=== PATIENT | male | born 1960 | race Two or more races ===

== ENCOUNTER 2017-06-13 20:03 | Emergency (ER) | payer MEDICARE, MEDICAID ==
[~2017-06-13] VITALS: Ht 177.8 cm; Wt 72.6 kg
[2017-06-13 20:05] VITALS: BP 157/99
[2017-06-13 20:15] VITALS: BP 157/99
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
[2017-06-13] MEDS ORDERED: ACETAMINOPHEN-1 EAC1 ORAL (21:22)
[2017-06-13] MEDS ORDERED: LISINOPRIL5 MG ORAL (21:22)
== END 2017-06-13 20:45 | disposition home or self-care (01) ==
LOC: EDBD 20:03 → EMR 20:40
DX: Z43.3 Encounter for attention to colostomy (principal); I10 Essential (primary) hypertension; H53.40 Unspecified visual field defects; G47.00 Insomnia, unspecified
CPT/HCPCS: 96372; 99284; J1170

== ENCOUNTER 2018-03-25 00:09 | Emergency (ER) | payer MEDICARE, MEDICAID ==
[~2018-03-25] VITALS: Ht 188 cm; Wt 86.2 kg
[~2018-03-25 00:09] MED LIST: ACETAMINOPHEN-1 EAC1 ORAL; LISINOPRIL5 MG ORAL
[2018-03-25 00:11] VITALS: BP 176/128
[2018-03-25] MEDS ORDERED: metoprolol (00:15)
[2018-03-25] MEDS ORDERED: lisinopril (00:15)
[2018-03-25] MEDS ORDERED: NORVASC10 MG ORAL (00:53)
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
[2018-03-25 00:55] VITALS: BP 190/111
[2018-03-25 00:56] VITALS: BP 176/128
== END 2018-03-25 01:10 | disposition home or self-care (01) ==
LOC: EDBD 00:09 → EMR 00:44
DX: Z46.89 Encounter for fitting and adjustment of other specified devices (principal); I10 Essential (primary) hypertension
CPT/HCPCS: 99283

== ENCOUNTER 2019-04-25 12:43 | Emergency (ER) | payer MEDICARE, MEDICAID ==
[~2019-04-25] VITALS: Ht 188 cm; Wt 81.6 kg
[~2019-04-25 12:43] MED LIST changes: +NORVASC10 MG ORAL; +lisinopril; +metoprolol
[2019-04-25 12:45] VITALS: BP 164/99
--- NOTE | 2019-04-25 12:50 | NUR ---
ED Nurse Note: Patient brought in by ambulance, he was found asleep on the ground next to his wheelchair. Patient states he lowered himself to the ground and fell asleep, denies fall. Patient states he has not had a colostomy bag for 2 days. Patient AxO x 4, no s/s of acute distress.
--- NOTE | 2019-04-25 12:55 | NUR ---
ED Nurse Note: 2 new colostomy bags given to patient, washcloths and soapy water in basin provided, along with towels and blankets. Patient able to clean himself, denies assistance with cleaning.
--- NOTE | 2019-04-25 13:00 | NUR ---
ED Nurse Note: Dr. Staton at bedside
[2019-04-25 14:00] VITALS: BP 164/99
--- NOTE | 2019-04-25 14:00 | NUR ---
ED Nurse Note: Patient cleared for DC by Dr. Staton. Patient AxO x 4, no s/s of acute distress. ID band removed. Patient walks with steady gait, took all belongings.
--- NOTE | 2019-04-26 23:23 | Emergency Room Report ---
History of Present Illness General Chief Complaint: General Complaint Source: Patient Present Illness HPI 58-year-old male presents ED for evaluation. Brought in by EMS from [place]. Requesting colostomy bag supplies. Status post colostomy. Has not had a bag in a few days. Notes stool on his abdomen. Denies pain. Denies fevers or chills. No other aggravating relieving factors. Denies any other associated symptoms Allergies: Coded Allergies: No Known Allergies (Unverified , 06/13/17) Patient History Past Medical History: psych hx Past Surgical History: other - colostomy Pertinent Family History: none Social History: Denies: smoking, alcohol use, drug use Immunizations: UTD Reviewed Nursing Documentation: PMH: Agreed; PSxH: Agreed Nursing Documentation-PMH Past Medical History: No History, Except For Hx Cardiac Problems: Yes Hx Hypertension: Yes Hx Pacemaker: No Hx Asthma: No Hx COPD: No Hx Diabetes: No Hx Cancer: No Hx Gastrointestinal Problems: No Hx Dialysis: No History Of Psychiatric Problem: Yes Hx Neurological Problems: No Hx Cerebrovascular Accident: No Hx Seizures: No Review of Systems All Other Systems: negative except mentioned in HPI Physical Exam Vital Signs Date Time Temp Pulse Resp B/P (MAP) Pulse Ox O2 Delivery O2 Flow Rate FiO2 04/25/19 12:39 97.3 80 18 170/120 (137) 97 Room Air Sp02 EP Interpretation: reviewed, normal General Appearance: no apparent distress, alert, GCS 15, non-toxic Head: normocephalic, atraumatic Eyes: bilateral eye normal inspection, bilateral eye PERRL ENT: hearing grossly normal, normal pharynx, no angioedema, normal voice Neck: full range of motion, supple/symm/no masses Respiratory: chest non-tender, lungs clear, normal breath sounds, speaking full sentences Cardiovascular #1: regular rate, rhythm, no edema Cardiovascular #2: 2+ carotid (R), 2+ carotid (L), 2+ radial (R), 2+ radial (L) , 2+ dorsalis pedis (R), 2+ dorsalis pedis (L) Gastrointestinal: normal bowel sounds, non tender, soft, non-distended, no guarding, no rebound, other - colostomy patent. pink. functioning Rectal: deferred Genitourinary: normal inspection, no CVA tenderness Musculoskeletal: back normal, normal range of motion, gait/station normal, non- tender Neurologic: alert, motor strength/tone normal, oriented x3, sensory intact, responsive, speech normal Psychiatric: judgement/insight normal, memory normal, mood/affect normal, no suicidal/homicidal ideation Reflexes: 3+ bicep (R), 3+ bicep (L), 3+ tricep (R), 3+ tricep (L), 3+ knee (R) , 3+ knee (L) Skin: no rash Lymphatic: no adenopathy Medical Decision Making Homeless Attestation I, The treating physician Dr. Staton, have assessed and agrees that patient is medically stable for discharge to an outpatient disposition. Diagnostic Impression: Primary Impression: Colostomy care ER Course 58-year-old male presents ED requesting colostomy supplies Patient placed on stretcher. After initial history physical exam reveals middle -aged male in no acute distress. Colostomy is patent and pink. Functioning. Stool on abdomen is cleaned. Patient given colostomy supplies. Colostomy bag placed on patient. Safe for discharge for close outpatient follow-up. I will provide referrals. Homeless checklist completed. Diagnosiscolostomy care stable and discharge to home. Follow-up with PMD. Return to ED if symptoms recur or worsen Last Vital Signs Date Time Temp Pulse Resp B/P (MAP) Pulse Ox O2 Delivery O2 Flow Rate FiO2 04/25/19 14:00 97.3 76 18 164/99 97 Room Air Status: improved Disposition: HOME, SELF-CARE Condition: Stable Referrals: NOT CHOSEN IPA/,REFERRING (PCP) [facility] Patient Instructions: Colostomy Home Guide Clovis Staton MD Apr 26, 2019 23:23
== END 2019-04-25 19:31 | disposition home or self-care (01) ==
LOC: EDBD 12:43 → EMR 13:50
DX: Z43.3 Encounter for attention to colostomy (principal); I10 Essential (primary) hypertension
CPT/HCPCS: 99282

== ENCOUNTER 2019-07-16 20:36 | Emergency (ER) | payer MEDICARE, MEDICAID ==
[~2019-07-16] VITALS: Ht 170.2 cm; Wt 63.5 kg
[2019-07-16 20:40] VITALS: BP 142/98
[2019-07-16 20:45] VITALS: BP 137/85
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
--- NOTE | 2019-07-16 20:55 | NUR ---
ED Nurse Note: COLOSTOMY CLEANED AND REPLACED
[2019-07-16] MEDS ORDERED: [UNRECOGNIZED DRUG - SUPPLY] MC (20:56)
[2019-07-16 21:20] VITALS: BP 139/91
--- NOTE | 2019-07-16 21:20 | NUR ---
Homeless Discharge: Patient is being discharged from medical care. Awake, alert and oriented x4. After care instructions, including referral to community resources were given but refused to disclose location. Patient verbalized understanding of After care instructions; at this time patient does not request medications, equipment or placement. Patient refused to sign patient consent in the medical record for patient destination upon discharge. All medical devices such as IV and ID band were removed. Patient ambulated out with all personal belongings with steady gait on wheelchair. nourishment and clothings were provided upon dc.
== END 2019-07-16 21:20 | disposition home or self-care (01) ==
LOC: EDBD 20:36 → EMR 21:20
DX: Z43.3 Encounter for attention to colostomy (principal); I10 Essential (primary) hypertension; E11.9 Type 2 diabetes mellitus without complications; Z86.73 Personal history of transient ischemic attack (TIA), and cerebral infarction without residual deficits
CPT/HCPCS: 99283

== ENCOUNTER 2019-09-24 23:58 | Inpatient (IN) | payer MEDICARE, MEDICAID ==
[~2019-09-24] VITALS: Ht 188 cm; Wt 90.7 kg
[~2019-09-24 23:58] MED LIST changes: +[UNRECOGNIZED DRUG - SUPPLY] MC
[2019-09-25] VITALS (7 sets, daily range): BP systolic 122–156; BP diastolic 60–94
--- NOTE | 2019-09-25 00:12 | Emergency Room Report ---
History of Present Illness General Chief Complaint: Lower Extremity Injury Source: Patient, Medical Record, EMS Present Illness HPI This is a 58-year-old male with a history of high blood pressure, diabetes, previous colostomy. He is mostly bedbound. Does use wheelchair and walker. He presents with chief complaint of DVT. He has chronic lower extremity edema but worse in the last couple months. Left greater than right. He had ultrasound done today which showed extensive DVT in his lower extremity. Patient has no shortness of breath. No fever chills but no nausea no vomiting. Does have chronic pain in that area. Pain is 8 out of 10. Denies any other complaint. Sent in to be evaluated. 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 COVID-19 Screening: Negative COVID-19 COVID-19 Testing Source: at [facility] 1 month ago Patient History Past Medical History: see triage record, old chart reviewed, DM, HTN Past Surgical History: other - colostomy Pertinent Family History: none Social History: Denies: smoking Immunizations: other Reviewed Nursing Documentation: PMH: Agreed; PSxH: Agreed Nursing Documentation-PMH Hx Cardiac Problems: Yes Hx Hypertension: Yes Hx Pacemaker: No Hx Asthma: No Hx COPD: No Hx Diabetes: Yes Hx Cancer: No Hx Gastrointestinal Problems: No Hx Dialysis: No Hx Neurological Problems: No Hx Cerebrovascular Accident: Yes Hx Seizures: No Review of Systems Eye: Denies: eye pain, blurred vision ENT: Denies: ear pain, nose congestion, throat swelling Respiratory: Denies: cough, shortness of breath Cardiovascular: Denies: chest pain, palpitations Gastrointestinal: Denies: abdominal pain, diarrhea, nausea, vomiting Musculoskeletal: Denies: back pain, joint pain Skin: Denies: rash Neurological: Denies: headache, numbness Endocrine: Denies: increased thirst, increased urine Hematologic/Lymphatic: Denies: easy bruising All Other Systems: negative except mentioned in HPI Physical Exam Vital Signs Date Time Temp Pulse Resp B/P (MAP) Pulse Ox O2 Delivery O2 Flow Rate FiO2 09/25/19 00:00 97.5 71 18 148/91 (110) 97 Diagnosis with high blood pressure Sp02 EP Interpretation: reviewed, normal General Appearance: well appearing, no apparent distress, alert Head: normocephalic, atraumatic Eyes: bilateral eye PERRL, bilateral eye EOMI ENT: hearing grossly normal, normal pharynx Neck: full range of motion, supple, no meningismus Respiratory: chest non-tender, lungs clear, normal breath sounds Cardiovascular #1: regular rate, rhythm, no murmur Gastrointestinal: normal bowel sounds, non tender, no mass, no organomegaly, no bruit, non-distended Musculoskeletal: back normal, normal range of motion, swelling - Lower extremity with extensive edema. Left greater than right. Psychiatric: mood/affect normal Medical Decision Making Diagnostic Impression: Primary Impression: DVT (deep venous thrombosis) Qualified Codes: I82.403 - Acute embolism and thrombosis of unspecified deep veins of lower extremity, bilateral Additional Impression: CKD (chronic kidney disease) Qualified Codes: N18.4 - Chronic kidney disease, stage 4 (severe) ER Course Patient had lower extremity swelling and has acute bilateral DVT. Lovenox given. Will admit for further work-up. I discussed the case with Dr. Sultana who will admit. Last Vital Signs Date Time Temp Pulse Resp B/P (MAP) Pulse Ox O2 Delivery O2 Flow Rate FiO2 09/25/19 00:00 97.5 71 18 148/91 (110) 97 Status: improved Disposition: ADMITTED INPATIENT Condition: Serious Dru Rolon MD Sep 25, 2019 00:12
[2019-09-25] MEDS ORDERED: HYDROmorphone 1mg/ml Carpuject IVP ONE (00:15)
[2019-09-25] MEDS ORDERED: Enoxaparin 100mg Inj SUBQ ONE (00:15)
[2019-09-25 01:03] LABS: BASOPHILS % (AUTO) 1.2 % (0.0-2.0); EOSINOPHILS % (AUTO) 2.8 % (0.0-3.0); HEMATOCRIT 30.2 % (42.0-52.0); HEMOGLOBIN 9.6 G/DL (14.2-18.0); LYMPHOCYTES % (AUTO) 24.1 % (20.0-45.0); MEAN CORPUSCULAR VOLUME 92 FL (80-99); MONOCYTES % (AUTO) 11.7 % (1.0-10.0); NEUTROPHILS % (AUTO) 60.1 % (45.0-75.0); PLATELET COUNT 205 K/UL (150-450); RED BLOOD COUNT 3.26 M/UL (4.70-6.10); RED CELL DISTRIBUTION WIDTH 16.1 % (11.6-14.8)
[2019-09-25 01:11] LABS: ANION GAP 12 mmol/L (5-15); BLOOD UREA NITROGEN 77 mg/dL (7-18); CALCIUM 7.8 MG/DL (8.5-10.1); CARBON DIOXIDE 23 MMOL/L (21-32); CHLORIDE 106 MMOL/L (98-107); CREATININE 4.6 MG/DL (0.55-1.30); POTASSIUM 4.7 MMOL/L (3.5-5.1); SODIUM 141 MMOL/L (136-145)
[2019-09-25 01:13] LABS: INR 0.9 (0.9-1.1)
[2019-09-25] MEDS ORDERED: Morphine Sulfate 4mg/ml Inj (IV USE ONLY) IVP PRN (01:30)
[2019-09-25] MEDS ORDERED: CATAPRES0.1 MG ORAL (01:40)
[2019-09-25] MEDS ORDERED: DIPHENHYDRAMINE25 M1 ORAL (01:40)
[2019-09-25] MEDS ORDERED: CRANBERRY450 M5 PO (01:40)
[2019-09-25] MEDS ORDERED: COLACE100 MG ORAL (01:40)
[2019-09-25] MEDS ORDERED: DEPAKOTE250 MG PO (01:42)
[2019-09-25] MEDS ORDERED: METOPROLOL TART50 MG ORAL (01:42)
[2019-09-25] MEDS ORDERED: HYDRALAZINE HCL50 MG ORAL (01:42)
[2019-09-25] MEDS ORDERED: COMPLETE M9 MG/15 M1 PO (01:44)
[2019-09-25] MEDS ORDERED: RISPERDAL2 MG ORAL (01:44)
[2019-09-25] MEDS ORDERED: ACETAMINOPHEN500 MG ORAL ×2 (01:44→01:46)
[2019-09-25] MEDS ORDERED: ZINC SULFATE220 M1 ORAL (01:46)
[2019-09-25] MEDS ORDERED: VITAMIN C 250250 MG PO (01:46)
[2019-09-25] MEDS ORDERED: HydrALAZINE 50mg tab ORAL SCH (08:00)
[2019-09-25] MEDS ORDERED: Docusate 100mg cap ORAL SCH (09:00)
[2019-09-25] MEDS ORDERED: Zinc Sulfate 220mg ORAL SCH (09:00)
[2019-09-25] MEDS ORDERED: Acetaminophen 500mg (ES) tab ORAL SCH (09:00)
[2019-09-25] MEDS ORDERED: Acetaminophen 500mg (ES) tab ORAL PRN (09:00)
[2019-09-25] MEDS: Metoprolol Tartrate 50mg tab ORAL SCH ×2 (09:32→21:57)
[2019-09-25 10:42] LABS: ANION GAP 11 mmol/L (5-15); BLOOD UREA NITROGEN 71 mg/dL (7-18); CALCIUM 7.5 MG/DL (8.5-10.1); CARBON DIOXIDE 24 MMOL/L (21-32); CHLORIDE 106 MMOL/L (98-107); CREATININE 4.3 MG/DL (0.55-1.30); POTASSIUM 5.1 MMOL/L (3.5-5.1); SODIUM 141 MMOL/L (136-145)
[2019-09-25 11:05] LABS: ALANINE AMINOTRANSFERASE 9 U/L (12-78); ALBUMIN 2.9 G/DL (3.4-5.0); ALBUMIN/GLOBULIN RATIO 0.8 (1.0-2.7); ALKALINE PHOSPHATASE 94 U/L (46-116); ASPARTATE AMINO TRANSFERASE 15 U/L (15-37); BILIRUBIN,TOTAL 0.2 MG/DL (0.2-1.0); CREATINE KINASE 268 U/L (26-308); FERRITIN 48 NG/ML (8-388); PHOSPHORUS 5.9 MG/DL (2.5-4.9)
[2019-09-25 11:16] LABS: % IRON SATURATION 22 % (15-50); IRON 67 ug/dL (50-175); TOTAL IRON BINDING CAPACITY 301 ug/dL (250-450)
[2019-09-25 11:28] LABS: APPEARANCE,URINE CLEAR; BILIRUBIN, URINE NEGATIVE (NEGATIVE); COLOR,URINE PALE YELLOW; GLUCOSE, URINE (UA) NEGATIVE (NEGATIVE); KETONES,URINE NEGATIVE (NEGATIVE); LEUKOCYTE ESTERASE ,URINE NEGATIVE (NEGATIVE); NITRITE,URINE NEGATIVE (NEGATIVE); PH,URINE 6 (4.5-8.0); PROTEIN,URINE 3+ (NEGATIVE); UROBILINOGEN,URINE NORMAL MG/DL (0.0-1.0)
--- NOTE | 2019-09-25 12:06 | Consultation ---
Consult Note Consult Note I am asked to evaluate the patient at the request of Dr. Duval for renal failure. Patient interviewed. He is known to have chronic kidney disease. And have been seen by net ui developer who told him that he is close to being started on dialysis treatment. Patient is 58-year-old -[place] male has past history of hypertension. Patient has previous colostomy. Mostly bedbound. Uses wheelchair and walker. He presented to emergency room here at [facility] with a chief complaint of deep vein thrombosis. He has chronic lower extremity edema which was worse for the past couple months. Denies shortness of breath. Denies fever chills nausea vomiting. Allergies not known. COVID screening negative. Previous test performed which was negative. Test was performed at [facility] a month ago. Past history: Hypertension, diabetes mellitus per record, colostomy, questionable CVA. On examination the patient appears to be appropriate. Vital signs stable. Head normocephalic. Neck is supple Lungs decreased breath sound over the bases Heart mainly regular Abdomen soft colostomy in place Lower extremities edematous Labs indicative of anemia weighted creatinine, proteinuria . Assessment/Plan 58-year-old male presents with a DVT of the lower extremity Has acute on chronic kidney disease Anemia of chronic kidney disease Previous intestinal resection status post colostomy Suggestions: Renal diet Adjust blood pressure medication Slow hydration, monitor renal parameters Per consultants Anemia work-up Subcu Epogen Urine studies Kidney ultrasound Per orders I spent an additional 36 minutes on review of medical records including prior hospital records,consult notes, progress notes, procedures ,imaging labs, hemodynamics, and other clinical documentation. Patient had at least 4 other emergency room visits previously which were reviewed in EMR. Oswaldo Nuñez MD Sep 25, 2019 12:06
[2019-09-25] MEDS ORDERED: HydrALAZINE 25mg tab ORAL PRN (12:15)
[2019-09-25] MEDS ORDERED: Enoxaparin 100mg Inj SUBQ SCH (13:00)
--- NOTE | 2019-09-25 13:35 | Consultation ---
History of Present Illness General Chief Complaint: Lower Extremity Injury Present Illness Allergies: Coded Allergies: No Known Allergies (Unverified , 06/13/17) Medication History Scheduled Acetaminophen* (Tylenol Extra Strength*), 1,000 MG ORAL Q4HR, (Reported) Acetaminophen* (Tylenol Extra Strength*), 1,000 MG ORAL Q4HR, (Reported) Amlodipine Besylate (Norvasc), 10 MG ORAL DAILY Clonidine Hcl* (Catapres*), 0.1 MG ORAL EVERY 6 HOURS, (Reported) Diphenhydramine Hcl* (Diphenhydramine Hcl*), 25 MG ORAL Q4HR, (Reported) Divalproex Sodium* (Depakote*), 500 MG PO DAILY, (Reported) Docusate Sodium* (Colace*), 100 MG ORAL DAILY, (Reported) Hydralazine Hcl* (Hydralazine Hcl*), 50 MG ORAL EVERY 8 HOURS, (Reported) Metoprolol Tartrate* (Metoprolol Tartrate*), 50 MG ORAL EVERY 12 HOURS, ( Reported) Risperidone* (Risperdal*), 2 MG ORAL DAILY, (Reported) Zinc Sulfate (Zinc Sulfate*), 220 MG ORAL DAILY, (Reported) Miscellaneous Medications Ascorbic Acid/Ascorbate Sodium (Vitamin C 250 mg Tablet Chew), 500 MG PO, ( Reported) Cranberry Fruit (Cranberry), 450 MG PO, (Reported) Multivit &Minerals/Ferrous Fum (Complete Multivit-Mineral Liq), 9 MG PO, ( Reported) Durable Medical Equipment Colostomy Bags (Drainable Pouch), EACH , (DME) Patient History Healthcare decision maker Resuscitation status Advanced Directive on File Physical Exam Last 24 Hour Vital Signs Date Time Temp Pulse Resp B/P (MAP) Pulse Ox O2 Delivery O2 Flow Rate FiO2 09/25/19 12:26 134/86 09/25/19 09:33 69 142/97 09/25/19 09:32 69 142/97 09/25/19 09:30 142/97 09/25/19 08:00 97.1 67 20 152/93 (112) 98 09/25/19 04:00 97.1 65 19 148/94 (112) 98 09/25/19 02:35 Room Air 09/25/19 02:00 97.4 56 18 148/60 97 Room Air 09/25/19 01:47 97.4 56 18 148/60 97 Room Air 09/25/19 00:48 97.6 09/25/19 00:20 97.3 62 18 156/88 97 09/25/19 00:00 97.5 71 18 148/91 (110) 97 Intake and Output 09/24/19 09/25/19 19:00 07:00 Intake Total 860 ml Output Total 950 ml Balance -90 ml Intake Oral 860 ml Output Urine Total 950 ml # Voids 3 Laboratory Tests Test 09/25/19 00:35 09/25/19 09:30 09/25/19 09:50 White Blood Count 8.0 K/UL (4.8-10.8) Red Blood Count 3.26 M/UL (4.70-6.10) L Hemoglobin 9.6 G/DL (14.2-18.0) L Hematocrit 30.2 % (42.0-52.0) L Mean Corpuscular Volume 92 FL (80-99) Mean Corpuscular Hemoglobin 29.4 PG (27.0-31.0) Mean Corpuscular Hemoglobin Concent 31.8 G/DL (32.0-36.0) L Red Cell Distribution Width 16.1 % (11.6-14.8) H Platelet Count 205 K/UL (150-450) Mean Platelet Volume 6.2 FL (6.5-10.1) L Neutrophils (%) (Auto) 60.1 % (45.0-75.0) Lymphocytes (%) (Auto) 24.1 % (20.0-45.0) Monocytes (%) (Auto) 11.7 % (1.0-10.0) H Eosinophils (%) (Auto) 2.8 % (0.0-3.0) Basophils (%) (Auto) 1.2 % (0.0-2.0) Prothrombin Time 10.4 SEC (9.30-11.50) Prothromb Time International Ratio 0.9 (0.9-1.1) Activated Partial Thromboplast Time 25 SEC (23-33) Sodium Level 141 MMOL/L (136-145) 141 MMOL/L (136-145) Potassium Level 4.7 MMOL/L (3.5-5.1) 5.1 MMOL/L (3.5-5.1) Chloride Level 106 MMOL/L (98-107) 106 MMOL/L (98-107) Carbon Dioxide Level 23 MMOL/L (21-32) 24 MMOL/L (21-32) Anion Gap 12 mmol/L (5-15) 11 mmol/L (5-15) Blood Urea Nitrogen 77 mg/dL (7-18) H 71 mg/dL (7-18) H Creatinine 4.6 MG/DL (0.55-1.30) H 4.3 MG/DL (0.55-1.30) H Estimat Glomerular Filtration Rate 16.1 mL/min (>60) 17.5 mL/min (>60) Glucose Level 101 MG/DL (74-106) 82 MG/DL (74-106) Calcium Level 7.8 MG/DL (8.5-10.1) L 7.5 MG/DL (8.5-10.1) L Uric Acid 7.6 MG/DL (2.6-7.2) H Phosphorus Level 5.9 MG/DL (2.5-4.9) H Magnesium Level 1.8 MG/DL (1.8-2.4) Iron Level 67 ug/dL (50-175) Total Iron Binding Capacity 301 ug/dL (250-450) Percent Iron Saturation 22 % (15-50) Unsaturated Iron Binding 234 ug/dL (112-346) Ferritin 48 NG/ML (8-388) Total Bilirubin 0.2 MG/DL (0.2-1.0) Aspartate Amino Transf (AST/SGOT) 15 U/L (15-37) Alanine Aminotransferase (ALT/SGPT) 9 U/L (12-78) L Alkaline Phosphatase 94 U/L (46-116) Total Creatine Kinase 268 U/L (26-308) Total Protein 6.5 G/DL (6.4-8.2) Albumin 2.9 G/DL (3.4-5.0) L Globulin 3.6 g/dL Albumin/Globulin Ratio 0.8 (1.0-2.7) L Vitamin B12 Level 502 PG/ML (193-986) Folate 9.1 NG/ML (8.6-58.9) Urine Color Pale yellow Urine Appearance Clear Urine pH 6 (4.5-8.0) Urine Specific Marble 1.010 (1.005-1.035) Urine Protein 3+ (NEGATIVE) H Urine Glucose (UA) Negative (NEGATIVE) Urine Ketones Negative (NEGATIVE) Urine Blood 1+ (NEGATIVE) H Urine Nitrite Negative (NEGATIVE) Urine Bilirubin Negative (NEGATIVE) Urine Urobilinogen Normal MG/DL (0.0-1.0) Urine Leukocyte Esterase Negative (NEGATIVE) Urine RBC 0-2 /HPF (0 - 0) H Urine WBC 0 /HPF (0 - 0) Urine Squamous Epithelial Cells Occasional /LPF Urine Bacteria Occasional /HPF (NONE) Urine Random Sodium 82 mmol/L (20-110) Height (Feet): 6 Height (Inches): 2.00 Weight (Pounds): 201 Medications Current Medications Medications (Trade) Dose Ordered Sig/Emilee Route PRN Reason Start Time Stop Time Status Last Admin Dose Admin Acetaminophen (Tylenol) 1,000 mg Q4HR PRN ORAL FOR PAIN 09/25/19 09:00 10/25/19 08:59 Amlodipine Besylate (Norvasc) 10 mg DAILY ORAL 09/25/19 09:00 10/25/19 08:59 09/25/19 09:33 Apixaban (Eliquis) 2.5 mg BID ORAL 09/25/19 18:00 12/24/19 17:59 Calcium Carbonate (Calcium Carbonate) 650 mg THREE TIMES A DAY ORAL 09/25/19 13:00 12/24/19 12:59 Clonidine HCl (Catapres Tab) 0.1 mg EVERY 6 HOURS ORAL 09/25/19 07:00 12/24/19 06:59 09/25/19 12:26 Diphenhydramine HCl (Benadryl) 25 mg Q4HR PRN ORAL For Itching 09/25/19 09:00 10/25/19 08:59 Divalproex Sodium (Depakote) 500 mg DAILY ORAL 09/25/19 09:00 10/25/19 08:59 Docusate Sodium (Colace) 100 mg BID ORAL 09/25/19 18:00 10/25/19 08:59 Epoetin Hakan (Epoetin Hakan-EPBX(NON ESRD)) 10,000 unit THU-THU-THU SUBQ 09/26/19 21:00 12/25/19 20:59 Ergocalciferol (Drisdol) 50,000 intlu QWEEK ORAL 09/25/19 14:00 10/25/19 13:59 Hydralazine HCl (Apresoline) 25 mg Q4HR PRN ORAL BP over 160 systolic 09/25/19 12:15 12/24/19 12:14 Hydralazine HCl (Apresoline) 50 mg EVERY 8 HOURS ORAL 09/25/19 08:00 12/24/19 07:59 09/25/19 09:30 Metoprolol Tartrate (Lopressor) 50 mg EVERY 12 HOURS ORAL 09/25/19 09:00 12/24/19 08:59 09/25/19 09:32 Ondansetron HCl (Zofran) 4 mg PRN PRN IVP Nausea & Vomiting 09/25/19 01:30 Risperidone (RisperDAL) 2 mg DAILY ORAL 09/25/19 09:00 11/09/19 08:59 09/25/19 09:33 Tamsulosin HCl (Flomax) 0.4 mg BID ORAL 09/25/19 18:00 10/25/19 17:59 Assessment/Plan Assessment/Plan: Hematology Consultation REQ MD: Kimberley Tatum C: DVT eval DOS 09/25/2019 HPI This is a 58-year-old male with a history of high blood pressure, diabetes, previous colostomy. He is mostly bedbound. Does use wheelchair and walker. He presents with chief complaint of DVT. He has chronic lower extremity edema but worse in the last couple months. Left greater than right. He had ultrasound done today which showed extensive DVT in his lower extremity. Patient has no shortness of breath. No fever chills but no nausea no vomiting. Does have chronic pain in that area. Pain is 8 out of 10. Denies any other complaint. Sent in to be evaluated. 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 COVID-19 Screening: Negative COVID-19 COVID-19 Testing Source: at [facility] 1 month ago Patient History Past Medical History: see triage record, old chart reviewed, DM, HTN Past Surgical History: other - colostomy Pertinent Family History: none Social History: Denies: smoking Immunizations: other Reviewed Nursing Documentation: PMH: Agreed; PSxH: Agreed Nursing Documentation-PMH Hx Cardiac Problems: Yes Hx Hypertension: Yes Hx Pacemaker: No Hx Asthma: No Hx COPD: No Hx Diabetes: Yes Hx Cancer: No Hx Gastrointestinal Problems: No Hx Dialysis: No Hx Neurological Problems: No Hx Cerebrovascular Accident: Yes Hx Seizures: No ROS (review of systems): Constitutional: No fever, no chills, no night sweats, no fatigue Skin: No rashes, lumps, itchiness, dryness HEENT: No TA, ear ache, visual changes, double vision, nosebleeds Breasts: No lumps, pain, discharge Pulmonary: No cough, sputum, shortness of breath, coughing up blood Cardiovascular: No chest pain, tightness, palpitations, syncope, PND GI: No nausea, vomiting, diarrhea, melena, hematochezia, change in appetite, : No dysuria, frequency, urgency, urinary incontinence, foamy urine Musculoskeletal: No joint swelling or muscle pain, trauma, back pain Neurologic: No dizziness, fainting, seizures, changes in smell or taste Psychiatric: No nervousness, stress, or depression, anxiety, hallucinations Endocrine: No weight change, heat or cold intolerance, tremor, insomnia Physical Exam: Vitals: reviewed General: NAD HEENT: nc, at Neck: supple Chest: clear breath sounds bilaterally Cardiovascular: RRR, no s3, s4 Abdomen: soft, nontender, nd Extremities: no cce, normal range of motion left ?right swelling lower leg Neuro: alert and oriented Labs noted Imaging reviewed Assessment and recs # DVT (deep venous thrombosis) of the left lower ext as well as right lower ext --> confirm with us duplex lower ext --> have dw pulm and renal and has elev cr --> in general best to avoid doac, noac, coumadin, etc --> in this case start eliquis 2.5mg po bid --> partially dialyzable as well if gets hd ever # Anemia of iron deficiency --> Anemia workup has been ordered, rule out gi bleed --> No evidence of hemolysis is noted, peripheral smear has been reviewed. --> Hgb goal >7. Transfuse prn. --> Epogen or iron BOTH started --> Medications have been reviewed # AILYN on CKD (chronic kidney disease) --> as per renal --> hydraton prn # Dvt ppx eliquis The timing of this note does not necessarily reflect the time of the patient was seen. Greatly appreciate consultation. Matt Pantoja MD Sep 25, 2019 13:35
[2019-09-25] MEDS ORDERED: Vitamin D 50,000 units cap ORAL SCH (14:00)
[2019-09-25] MEDS: Calcium Carbonate 650mg Tab ORAL SCH ×2 (14:30→18:38)
[2019-09-25] MEDS: HydrALAZINE 50mg tab ORAL SCH (16:21)
[2019-09-25] MEDS: Docusate 100mg cap ORAL SCH (18:00)
[2019-09-25] MEDS: Eliquis 2.5mg tablet ORAL SCH (18:35)
[2019-09-25] MEDS: Tamsulosin 0.4mg cap ORAL SCH (18:35)
--- NOTE | 2019-09-25 19:45 | Consultation ---
DATE OF CONSULTATION: 09/25/2019 PULMONARY CONSULTATION HISTORY OF PRESENT ILLNESS: This is a 58-year-old male with a history of hypertension, diabetes mellitus, and previous colostomy. He has mobility issues and uses wheelchair and walker. He came to the hospital with DVT. The patient states he has had DVTs for many years, but has stopped taking anticoagulation for the last 3 months. Ultrasound showed DVT in the left lower extremity. He denies shortness of breath or chest pain. PAST MEDICAL HISTORY: Notable for hypertension, diabetes mellitus, previous colostomy, poor mobility with wheelchair and walker status. CURRENT MEDICATIONS: Norvasc, clonidine, Depakote, Epogen, hydralazine, metoprolol. REVIEW OF SYSTEMS: Denies any headaches, hematemesis, melena, hematochezia, night sweats, or weight loss. PHYSICAL EXAMINATION: GENERAL: Reveals a 58-year-old male. VITAL SIGNS: Blood pressure 130/80, heart rate 84, respiratory rate , afebrile. HEENT: Unremarkable. CHEST: Clear breath sounds bilaterally. ABDOMEN: Soft. There is colostomy noted. EXTREMITIES: There is left lower extremity edema. LABORATORY DATA: Hemoglobin 9.6, otherwise normal CBC and BMP. Creatinine is 4.3. Coags show INR 0.9. IMPRESSION: 1. Left lower extremity DVT. 2. Chronic DVT. 3. Hypertension. 4. Diabetes mellitus. 5. Previous CVA. 6. Colostomy. DISCUSSION: The patient has acute on chronic kidney disease. We will defer the choice of anticoagulant to Hematology. The patient will need to be monitored. Currently, no evidence of PE. We will follow. West Boyd M.D. DR: Jeanie JOB#: [id number] CC:
--- NOTE | 2019-09-25 21:44 | History and Physical Report ---
DATE OF ADMISSION: 09/25/2019 HISTORY OF PRESENT ILLNESS: The patient is being admitted for DVT. He does have history of chronic renal insufficiency. Denies nausea, vomiting, or diarrhea. No fever or chills. Denies shortness of breath. Denies cough. PAST MEDICAL HISTORY: History of chronic renal insufficiency, history of diabetes, history of hypertension, and history of CVA. PAST SURGICAL HISTORY: Colostomy. MEDICATIONS: The patient takes Depakote, Colace, hydralazine, metoprolol, risperidone, zinc sulfate, and clonidine. ALLERGIES: No known allergies. FAMILY HISTORY: Noncontributory. SOCIAL HISTORY: Does have history of smoking. Denies history of alcohol or illicit drugs. Comes from the facility. REVIEW OF SYSTEMS: HEENT: Denies headaches. RESPIRATORY: Denies shortness of breath. Denies cough. CARDIOVASCULAR: Denies chest pain. GASTROINTESTINAL: Denies nausea, vomiting, or diarrhea. EXTREMITIES: Reveals leg pain. CENTRAL NERVOUS SYSTEM: Denies change in vision or speech pattern. PHYSICAL EXAMINATION: VITAL SIGNS: Temperature is 97.7, pulse is 66, and blood pressure is 134/86. HEENT: PERRLA. NECK: Supple. No lymphadenopathy. CHEST: Clear to auscultation. CARDIOVASCULAR: Regular rate and rhythm. No murmurs or extra sounds. GASTROINTESTINAL: Soft, nontender, and nondistended. EXTREMITIES: He does have 1+ edema. He has lower extremity weakness. LABORATORY DATA: WBC of 8, hemoglobin of 9.6, and platelets of 205,000. Sodium 141, potassium 4.7, BUN of 77, creatinine 4.6, and glucose of 101. ASSESSMENT: 1. DVT. 2. Chronic renal insufficiency. 3. Azotemia. PLAN: I have asked Dr. Matt Pantoja, Dr. Boyd, and Dr. Nuñez to see the patient for the treatment of the DVT and renal insufficiency to help with that and we will monitor the patient closely. Kimberley Duval M.D. DR: RODRIGUEZ JOB#: [id number] CC:
[2019-09-25] MEDS: Iron Sucrose 100 MG in NS 55 ML IV SCH (21:57)
[2019-09-26] VITALS: BP 148/90
[2019-09-26] MEDS: HydrALAZINE 50mg tab ORAL SCH ×3 (00:19→17:02)
[2019-09-26 04:00] VITALS: BP 140/90
[2019-09-26 07:20] LABS: EOSINOPHILS % (AUTO) 2.3 % (0.0-3.0); HEMATOCRIT 29.3 % (42.0-52.0); HEMOGLOBIN 8.9 G/DL (14.2-18.0); LYMPHOCYTES % (AUTO) 26.7 % (20.0-45.0); MEAN CORPUSCULAR VOLUME 95 FL (80-99); MONOCYTES % (AUTO) 15.2 % (1.0-10.0); NEUTROPHILS % (AUTO) 54.9 % (45.0-75.0); PLATELET COUNT 191 K/UL (150-450); RED CELL DISTRIBUTION WIDTH 15.6 % (11.6-14.8); WHITE BLOOD COUNT 6.6 K/UL (4.8-10.8)
[2019-09-26 08:00] VITALS: BP 128/77
[2019-09-26 08:01] LABS: ALANINE AMINOTRANSFERASE 14 U/L (12-78); ALBUMIN 2.7 G/DL (3.4-5.0); ALBUMIN/GLOBULIN RATIO 0.8 (1.0-2.7); ALKALINE PHOSPHATASE 85 U/L (46-116); ANION GAP 11 mmol/L (5-15); ASPARTATE AMINO TRANSFERASE 16 U/L (15-37); BILIRUBIN,TOTAL 0.1 MG/DL (0.2-1.0); BLOOD UREA NITROGEN 70 mg/dL (7-18); CALCIUM 7.8 MG/DL (8.5-10.1); CARBON DIOXIDE 22 MMOL/L (21-32); CHLORIDE 107 MMOL/L (98-107); CHOLESTEROL 140 MG/DL (< 200); CREATININE 4.4 MG/DL (0.55-1.30); HDL CHOLESTEROL 78 MG/DL (40-60); PHOSPHORUS 5.3 MG/DL (2.5-4.9); POTASSIUM 5.4 MMOL/L (3.5-5.1); SODIUM 140 MMOL/L (136-145); TRIGLYCERIDES 25 MG/DL (30-150)
[2019-09-26] MEDS: Tamsulosin 0.4mg cap ORAL SCH ×2 (08:23→17:02)
[2019-09-26] MEDS: Eliquis 2.5mg tablet ORAL SCH ×2 (08:24→17:02)
[2019-09-26] MEDS: Calcium Carbonate 650mg Tab ORAL SCH ×3 (08:24→17:02)
[2019-09-26] MEDS: Docusate 100mg cap ORAL SCH ×2 (08:30→17:02)
[2019-09-26] MEDS: Metoprolol Tartrate 50mg tab ORAL SCH ×2 (08:30→21:20)
[2019-09-26] MEDS ORDERED: Sodium Polystyrene Sulfonate 15gm Powder ORAL SCH (09:30)
[2019-09-26] MEDS ORDERED: Sodium Polystyrene Sulfonate 15gm Powder ORAL ONE ×2 (09:30→13:00)
--- NOTE | 2019-09-26 10:15 | Pulmonology Progress Note ---
Subjective Interval Events: None new Constitutional: Reports: no symptoms HEENT: Repors: no symptoms Respiratory: Reports: no symptoms Gastrointestinal/Abdominal: Reports: no symptoms Genitourinary: Reports: no symptoms Allergies: Coded Allergies: No Known Allergies (Unverified , 06/13/17) Objective Last 24 Hour Vital Signs Date Time Temp Pulse Resp B/P (MAP) Pulse Ox O2 Delivery O2 Flow Rate FiO2 09/26/19 08:30 65 128/77 09/26/19 08:24 128/77 09/26/19 08:23 65 128/77 09/26/19 06:09 140/90 09/26/19 04:00 97.5 61 18 140/90 (107) 98 09/26/19 00:20 148/90 09/26/19 00:19 148/90 09/26/19 00:00 98.2 60 18 148/90 (109) 96 09/25/19 21:57 63 140/80 09/25/19 21:00 Room Air 09/25/19 20:00 98.2 63 20 140/80 (100) 96 09/25/19 18:36 129/70 09/25/19 16:21 123/80 09/25/19 16:00 98.2 66 18 122/70 (87) 96 09/25/19 12:26 134/86 09/25/19 12:00 97.7 66 20 134/86 (102) 96 Intake and Output 09/25/19 09/26/19 19:00 07:00 Intake Total 1320 ml 870 ml Output Total 900 ml 850 ml Balance 420 ml 20 ml Intake Oral 1320 ml 870 ml Output Urine Total 900 ml 850 ml # Voids 6 3 General Appearance: no acute distress HEENT: normocephalic Respiratory: chest wall non-tender, lungs clear Cardiovascular: normal peripheral pulses, normal rate Abdomen: normal bowel sounds Laboratory Tests 09/26/19 06:40: White Blood Count 6.6, Red Blood Count 3.10L, Hemoglobin 8.9L, Hematocrit 29.3L , Mean Corpuscular Volume 95, Mean Corpuscular Hemoglobin 28.6, Mean Corpuscular Hemoglobin Concent 30.2L, Red Cell Distribution Width 15.6H, Platelet Count 191, Mean Platelet Volume 6.5, Neutrophils (%) (Auto) 54.9, Lymphocytes (%) (Auto) 26.7, Monocytes (%) (Auto) 15.2H, Eosinophils (%) (Auto) 2.3, Basophils (%) (Auto) 1.0, Sodium Level 140, Potassium Level 5.4H, Chloride Level 107, Carbon Dioxide Level 22, Anion Gap 11, Blood Urea Nitrogen 70H, Creatinine 4.4H, Estimat Glomerular Filtration Rate 17.0, Glucose Level 85, Hemoglobin A1c 6.9H, Calcium Level 7.8L, Phosphorus Level 5.3H, Total Bilirubin 0.1L, Aspartate Amino Transf (AST/SGOT) 16, Alanine Aminotransferase (ALT/SGPT) 14, Alkaline Phosphatase 85, Total Protein 6.2L, Albumin 2.7L, Globulin 3.5, Albumin/Globulin Ratio 0.8L, Triglycerides Level 25L, Cholesterol Level 140, LDL Cholesterol 51, HDL Cholesterol 78H, Cholesterol/HDL Ratio 1.8L Current Medications Medications (Trade) Dose Ordered Sig/Emilee Route PRN Reason Start Time Stop Time Status Last Admin Dose Admin Acetaminophen (Tylenol) 1,000 mg Q4HR PRN ORAL FOR PAIN 09/25/19 09:00 10/25/19 08:59 09/25/19 18:48 Acetaminophen/ Hydrocodone Bitart (Ridge 5/325) 1 tab Q4H PRN ORAL Severe Pain (Pain Scale 7-10) 09/26/19 09:15 10/03/19 09:14 Amlodipine Besylate (Norvasc) 10 mg DAILY ORAL 09/25/19 09:00 10/25/19 08:59 09/26/19 08:23 Apixaban (Eliquis) 2.5 mg BID ORAL 09/25/19 18:00 12/24/19 17:59 09/26/19 08:24 Calcium Carbonate (Calcium Carbonate) 650 mg THREE TIMES A DAY ORAL 09/25/19 13:00 12/24/19 12:59 09/26/19 08:24 Clonidine HCl (Catapres Tab) 0.1 mg EVERY 8 HOURS ORAL 09/26/19 14:00 12/24/19 06:59 Diphenhydramine HCl (Benadryl) 25 mg Q4HR PRN ORAL For Itching 09/25/19 09:00 10/25/19 08:59 Divalproex Sodium (Depakote) 500 mg DAILY ORAL 09/25/19 09:00 10/25/19 08:59 09/26/19 08:23 Docusate Sodium (Colace) 100 mg BID ORAL 09/25/19 18:00 10/25/19 08:59 Epoetin Hakan (Epoetin Haakn-EPBX(NON ESRD)) 10,000 unit THU-THU-THU SUBQ 09/26/19 21:00 12/25/19 20:59 Hydralazine HCl (Apresoline) 25 mg Q4HR PRN ORAL BP over 160 systolic 09/25/19 12:15 12/24/19 12:14 Hydralazine HCl (Apresoline) 50 mg Q8H ORAL 09/26/19 16:00 12/24/19 15:59 Iron Sucrose 100 mg/Sodium Chloride 60 ml @ 240 mls/hr BEDTIME IV 09/25/19 21:00 09/29/19 21:14 09/25/19 21:57 Metoprolol Tartrate (Lopressor) 50 mg EVERY 12 HOURS ORAL 09/25/19 09:00 12/24/19 08:59 09/25/19 21:57 Ondansetron HCl (Zofran) 4 mg PRN PRN IVP Nausea & Vomiting 09/25/19 01:30 Risperidone (RisperDAL) 2 mg DAILY ORAL 09/25/19 09:00 11/09/19 08:59 09/26/19 08:24 Sodium Polystyrene Sulfonate (Kayexalate) 30 gm ONCE ORAL 09/26/19 09:30 09/26/19 10:30 Sodium Polystyrene Sulfonate (Kayexalate) 30 gm ONCE ONCE ORAL 09/26/19 09:30 09/26/19 09:31 UNV Tamsulosin HCl (Flomax) 0.4 mg BID ORAL 09/25/19 18:00 10/25/19 17:59 09/26/19 08:23 Assessment/Plan Assessment/Plan IMPRESSION: 1. Left lower extremity DVT. 2. Chronic DVT. 3. Hypertension. 4. Diabetes mellitus. 5. Previous CVA. 6. Colostomy. DISCUSSION: The patient has acute on chronic DVT. I will defer the choice of anticoagulant to Hematology. Currently, no evidence of PE. I will follow. Rosina Moody Omar Syed MD Sep 26, 2019 10:15
--- NOTE | 2019-09-26 10:18 | Hematology/Onc Progress Note ---
Assessment/Plan Assessment/Plan Assessment and recs # DVT (deep venous thrombosis) of the left lower ext as well as right lower ext --> confirm with us duplex lower ext --> have dw pulm and renal and has elev cr --> in general best to avoid doac, noac, coumadin, etc --> in this case start eliquis 2.5mg po bid --> partially dialyzable as well if gets hd ever # Anemia of iron deficiency --> Anemia workup has been ordered, rule out gi bleed --> No evidence of hemolysis is noted, peripheral smear has been reviewed. --> Hgb goal >7. Transfuse prn. --> Epogen or iron BOTH started --> Medications have been reviewed # AILYN on CKD (chronic kidney disease) --> as per renal --> hydraton prn # Dvt ppx eliquis The timing of this note does not necessarily reflect the time of the patient was seen. Greatly appreciate consultation. Subjective Constitutional: Denies: no symptoms, chills, fever, malaise, weakness, other HEENT: Denies: no symptoms, eye pain, blurred vision, tearing, double vision, ear pain, ear discharge, nose pain, nose congestion, throat pain, throat swelling, mouth pain, mouth swelling, other Cardiovascular: Denies: no symptoms, chest pain, edema, irregular heart rate, lightheadedness, palpitations, syncope, other Respiratory: Denies: no symptoms, cough, shortness of breath, SOB with excertion, SOB at rest, sputum, wheezing, other Gastrointestinal/Abdominal: Denies: no symptoms, abdomen distended, abdominal pain, black stools, tarry stools, blood in stool, constipated, diarrhea, difficulty swallowing, nausea, poor appetite, poor fluid intake, rectal bleeding , vomiting, other Neurologic/Psychiatric: Denies: no symptoms, anxiety, depressed, emotional problems, headache, numbness, paresthesia, pre-existing deficit, seizure, tingling, tremors, weakness, other Endocrine: Denies: no symptoms, excessive sweating, flushing, intolerance to cold, intolerance to heat, increased hunger, increased thirst, increased urine, unexplained weight gain, unexplained weight loss, other Hematologic/Lymphatic: Denies: no symptoms, anemia, easy bleeding, easy bruising, adenopathy, other Allergies: Coded Allergies: No Known Allergies (Unverified , 06/13/17) Subjective 09/25 labs are noted, no bleeding, meds noted, no hemolysis Objective Objective Current Medications Medications (Trade) Dose Ordered Sig/Emilee Route PRN Reason Start Time Stop Time Status Last Admin Dose Admin Acetaminophen (Tylenol) 1,000 mg Q4HR PRN ORAL FOR PAIN 09/25/19 09:00 10/25/19 08:59 09/25/19 18:48 Acetaminophen/ Hydrocodone Bitart ([place] 5/325) 1 tab Q4H PRN ORAL Severe Pain (Pain Scale 7-10) 09/26/19 09:15 10/03/19 09:14 Amlodipine Besylate (Norvasc) 10 mg DAILY ORAL 09/25/19 09:00 10/25/19 08:59 09/26/19 08:23 Apixaban (Eliquis) 2.5 mg BID ORAL 09/25/19 18:00 12/24/19 17:59 09/26/19 08:24 Calcium Carbonate (Calcium Carbonate) 650 mg THREE TIMES A DAY ORAL 09/25/19 13:00 12/24/19 12:59 09/26/19 08:24 Clonidine HCl (Catapres Tab) 0.1 mg EVERY 8 HOURS ORAL 09/26/19 14:00 12/24/19 06:59 Diphenhydramine HCl (Benadryl) 25 mg Q4HR PRN ORAL For Itching 09/25/19 09:00 10/25/19 08:59 Divalproex Sodium (Depakote) 500 mg DAILY ORAL 09/25/19 09:00 10/25/19 08:59 09/26/19 08:23 Docusate Sodium (Colace) 100 mg BID ORAL 09/25/19 18:00 10/25/19 08:59 Epoetin Hakan (Epoetin Hakan-EPBX(NON ESRD)) 10,000 unit THU-THU-THU SUBQ 09/26/19 21:00 12/25/19 20:59 Hydralazine HCl (Apresoline) 25 mg Q4HR PRN ORAL BP over 160 systolic 09/25/19 12:15 12/24/19 12:14 Hydralazine HCl (Apresoline) 50 mg Q8H ORAL 09/26/19 16:00 12/24/19 15:59 Iron Sucrose 100 mg/Sodium Chloride 60 ml @ 240 mls/hr BEDTIME IV 09/25/19 21:00 09/29/19 21:14 09/25/19 21:57 Metoprolol Tartrate (Lopressor) 50 mg EVERY 12 HOURS ORAL 09/25/19 09:00 12/24/19 08:59 09/25/19 21:57 Ondansetron HCl (Zofran) 4 mg PRN PRN IVP Nausea & Vomiting 09/25/19 01:30 Risperidone (RisperDAL) 2 mg DAILY ORAL 09/25/19 09:00 11/09/19 08:59 09/26/19 08:24 Sodium Polystyrene Sulfonate (Kayexalate) 30 gm ONCE ORAL 09/26/19 09:30 09/26/19 10:30 Sodium Polystyrene Sulfonate (Kayexalate) 30 gm ONCE ONCE ORAL 09/26/19 09:30 09/26/19 09:31 UNV Tamsulosin HCl (Flomax) 0.4 mg BID ORAL 09/25/19 18:00 10/25/19 17:59 09/26/19 08:23 Last 24 Hour Vital Signs Date Time Temp Pulse Resp B/P (MAP) Pulse Ox O2 Delivery O2 Flow Rate FiO2 09/26/19 08:30 65 128/77 09/26/19 08:24 128/77 09/26/19 08:23 65 128/77 09/26/19 06:09 140/90 09/26/19 04:00 97.5 61 18 140/90 (107) 98 09/26/19 00:20 148/90 09/26/19 00:19 148/90 09/26/19 00:00 98.2 60 18 148/90 (109) 96 09/25/19 21:57 63 140/80 09/25/19 21:00 Room Air 09/25/19 20:00 98.2 63 20 140/80 (100) 96 09/25/19 18:36 129/70 09/25/19 16:21 123/80 09/25/19 16:00 98.2 66 18 122/70 (87) 96 09/25/19 12:26 134/86 09/25/19 12:00 97.7 66 20 134/86 (102) 96 09/25/19 09:33 69 142/97 09/25/19 09:32 69 142/97 09/25/19 09:30 142/97 09/25/19 09:00 Room Air 09/25/19 08:00 97.1 67 20 152/93 (112) 98 09/25/19 04:00 97.1 65 19 148/94 (112) 98 09/25/19 02:35 Room Air 09/25/19 02:00 97.4 56 18 148/60 97 Room Air 09/25/19 01:47 97.4 56 18 148/60 97 Room Air 09/25/19 00:48 97.6 09/25/19 00:20 97.3 62 18 156/88 97 09/25/19 00:00 97.5 71 18 148/91 (110) 97 Intake and Output 09/25/19 09/26/19 19:00 07:00 Intake Total 1320 ml 870 ml Output Total 900 ml 850 ml Balance 420 ml 20 ml Intake Oral 1320 ml 870 ml Output Urine Total 900 ml 850 ml # Voids 6 3 Labs Test 09/25/19 00:35 09/25/19 09:30 09/25/19 09:50 09/26/19 06:40 White Blood Count 8.0 K/UL (4.8-10.8) 6.6 K/UL (4.8-10.8) Red Blood Count 3.26 M/UL (4.70-6.10) 3.10 M/UL (4.70-6.10) Hemoglobin 9.6 G/DL (14.2-18.0) 8.9 G/DL (14.2-18.0) Hematocrit 30.2 % (42.0-52.0) 29.3 % (42.0-52.0) Mean Corpuscular Volume 92 FL (80-99) 95 FL (80-99) Mean Corpuscular Hemoglobin 29.4 PG (27.0-31.0) 28.6 PG (27.0-31.0) Mean Corpuscular Hemoglobin Concent 31.8 G/DL (32.0-36.0) 30.2 G/DL (32.0-36.0) Red Cell Distribution Width 16.1 % (11.6-14.8) 15.6 % (11.6-14.8) Platelet Count 205 K/UL (150-450) 191 K/UL (150-450) Mean Platelet Volume 6.2 FL (6.5-10.1) 6.5 FL (6.5-10.1) Neutrophils (%) (Auto) 60.1 % (45.0-75.0) 54.9 % (45.0-75.0) Lymphocytes (%) (Auto) 24.1 % (20.0-45.0) 26.7 % (20.0-45.0) Monocytes (%) (Auto) 11.7 % (1.0-10.0) 15.2 % (1.0-10.0) Eosinophils (%) (Auto) 2.8 % (0.0-3.0) 2.3 % (0.0-3.0) Basophils (%) (Auto) 1.2 % (0.0-2.0) 1.0 % (0.0-2.0) Prothrombin Time 10.4 SEC (9.30-11.50) Prothromb Time International Ratio 0.9 (0.9-1.1) Activated Partial Thromboplast Time 25 SEC (23-33) Sodium Level 141 MMOL/L (136-145) 141 MMOL/L (136-145) 140 MMOL/L (136-145) Potassium Level 4.7 MMOL/L (3.5-5.1) 5.1 MMOL/L (3.5-5.1) 5.4 MMOL/L (3.5-5.1) Chloride Level 106 MMOL/L (98-107) 106 MMOL/L (98-107) 107 MMOL/L (98-107) Carbon Dioxide Level 23 MMOL/L (21-32) 24 MMOL/L (21-32) 22 MMOL/L (21-32) Anion Gap 12 mmol/L (5-15) 11 mmol/L (5-15) 11 mmol/L (5-15) Blood Urea Nitrogen 77 mg/dL (7-18) 71 mg/dL (7-18) 70 mg/dL (7-18) Creatinine 4.6 MG/DL (0.55-1.30) 4.3 MG/DL (0.55-1.30) 4.4 MG/DL (0.55-1.30) Estimat Glomerular Filtration Rate 16.1 mL/min (>60) 17.5 mL/min (>60) 17.0 mL/min (>60) Glucose Level 101 MG/DL (74-106) 82 MG/DL (74-106) 85 MG/DL (74-106) Calcium Level 7.8 MG/DL (8.5-10.1) 7.5 MG/DL (8.5-10.1) 7.8 MG/DL (8.5-10.1) Uric Acid 7.6 MG/DL (2.6-7.2) Phosphorus Level 5.9 MG/DL (2.5-4.9) 5.3 MG/DL (2.5-4.9) Magnesium Level 1.8 MG/DL (1.8-2.4) Iron Level 67 ug/dL (50-175) Total Iron Binding Capacity 301 ug/dL (250-450) Percent Iron Saturation 22 % (15-50) Unsaturated Iron Binding 234 ug/dL (112-346) Ferritin 48 NG/ML (8-388) Total Bilirubin 0.2 MG/DL (0.2-1.0) 0.1 MG/DL (0.2-1.0) Aspartate Amino Transf (AST/SGOT) 15 U/L (15-37) 16 U/L (15-37) Alanine Aminotransferase (ALT/SGPT) 9 U/L (12-78) 14 U/L (12-78) Alkaline Phosphatase 94 U/L (46-116) 85 U/L (46-116) Total Creatine Kinase 268 U/L (26-308) Total Protein 6.5 G/DL (6.4-8.2) 6.2 G/DL (6.4-8.2) Albumin 2.9 G/DL (3.4-5.0) 2.7 G/DL (3.4-5.0) Globulin 3.6 g/dL 3.5 g/dL Albumin/Globulin Ratio 0.8 (1.0-2.7) 0.8 (1.0-2.7) Vitamin B12 Level 502 PG/ML (193-986) Folate 9.1 NG/ML (8.6-58.9) Urine Color Pale yellow Urine Appearance Clear Urine pH 6 (4.5-8.0) Urine Specific [place] 1.010 (1.005-1.035) Urine Protein 3+ (NEGATIVE) Urine Glucose (UA) Negative (NEGATIVE) Urine Ketones Negative (NEGATIVE) Urine Blood 1+ (NEGATIVE) Urine Nitrite Negative (NEGATIVE) Urine Bilirubin Negative (NEGATIVE) Urine Urobilinogen Normal MG/DL (0.0-1.0) Urine Leukocyte Esterase Negative (NEGATIVE) Urine RBC 0-2 /HPF (0 - 0) Urine WBC 0 /HPF (0 - 0) Urine Squamous Epithelial Cells Occasional /LPF Urine Bacteria Occasional /HPF (NONE) Urine Random Sodium 82 mmol/L (20-110) Hemoglobin A1c 6.9 % (4.3-6.0) Triglycerides Level 25 MG/DL (30-150) Cholesterol Level 140 MG/DL (< 200) LDL Cholesterol 51 mg/dL (<100) HDL Cholesterol 78 MG/DL (40-60) Cholesterol/HDL Ratio 1.8 (3.3-4.4) Height (Feet): 6 Height (Inches): 2.00 Weight (Pounds): 201 Objective Vitals: reviewed General: NAD HEENT: nc, at Neck: supple Chest: clear breath sounds bilaterally Cardiovascular: RRR, no s3, s4 Abdomen: soft, nontender, nd Extremities: no cce, normal range of motion left ?right swelling lower leg Neuro: alert and oriented Matt Pantoja MD Sep 26, 2019 10:18
[2019-09-26] MEDS: HYDROcodone/Acetamin 5/325 tab ORAL PRN ×3 (10:19→22:42)
--- NOTE | 2019-09-26 12:12 | Nephrology Progress Note ---
Assessment/Plan Problem List: (1) CKD (chronic kidney disease) (2) DVT (deep venous thrombosis) (3) Colostomy care (4) Anemia in chronic kidney disease (CKD) Assessment 58-year-old male presents with a DVT of the lower extremity Has acute on chronic kidney disease Anemia of chronic kidney disease Previous intestinal resection status post colostomy Plan Renal diet Kayexalate as needed for hyperkalemia Adjust blood pressure medication Slow hydration, monitor renal parameters Per consultants Anemia work-up Subcu Epogen Urine studies Kidney ultrasound Per orders Subjective ROS Limited/Unobtainable: No Constitutional: Reports: malaise, weakness Objective Objective Last 24 Hour Vital Signs Date Time Temp Pulse Resp B/P (MAP) Pulse Ox O2 Delivery O2 Flow Rate FiO2 09/26/19 08:30 65 128/77 09/26/19 08:24 128/77 09/26/19 08:23 65 128/77 09/26/19 08:00 97.0 65 18 128/77 (94) 92 09/26/19 06:09 140/90 09/26/19 04:00 97.5 61 18 140/90 (107) 98 09/26/19 00:20 148/90 09/26/19 00:19 148/90 09/26/19 00:00 98.2 60 18 148/90 (109) 96 09/25/19 21:57 63 140/80 09/25/19 21:00 Room Air 09/25/19 20:00 98.2 63 20 140/80 (100) 96 09/25/19 18:36 129/70 09/25/19 16:21 123/80 09/25/19 16:00 98.2 66 18 122/70 (87) 96 09/25/19 12:26 134/86 Intake and Output 09/25/19 09/26/19 19:00 07:00 Intake Total 1320 ml 870 ml Output Total 900 ml 850 ml Balance 420 ml 20 ml Intake Oral 1320 ml 870 ml Output Urine Total 900 ml 850 ml # Voids 6 3 Laboratory Tests 09/26/19 06:40: White Blood Count 6.6, Red Blood Count 3.10L, Hemoglobin 8.9L, Hematocrit 29.3L , Mean Corpuscular Volume 95, Mean Corpuscular Hemoglobin 28.6, Mean Corpuscular Hemoglobin Concent 30.2L, Red Cell Distribution Width 15.6H, Platelet Count 191, Mean Platelet Volume 6.5, Neutrophils (%) (Auto) 54.9, Lymphocytes (%) (Auto) 26.7, Monocytes (%) (Auto) 15.2H, Eosinophils (%) (Auto) 2.3, Basophils (%) (Auto) 1.0, Sodium Level 140, Potassium Level 5.4H, Chloride Level 107, Carbon Dioxide Level 22, Anion Gap 11, Blood Urea Nitrogen 70H, Creatinine 4.4H, Estimat Glomerular Filtration Rate 17.0, Glucose Level 85, Hemoglobin A1c 6.9H, Calcium Level 7.8L, Phosphorus Level 5.3H, Total Bilirubin 0.1L, Aspartate Amino Transf (AST/SGOT) 16, Alanine Aminotransferase (ALT/SGPT) 14, Alkaline Phosphatase 85, Total Protein 6.2L, Albumin 2.7L, Globulin 3.5, Albumin/Globulin Ratio 0.8L, Triglycerides Level 25L, Cholesterol Level 140, LDL Cholesterol 51, HDL Cholesterol 78H, Cholesterol/HDL Ratio 1.8L Height (Feet): 6 Height (Inches): 2.00 Weight (Pounds): 201 General Appearance: no apparent distress Cardiovascular: normal rate Respiratory/Chest: decreased breath sounds Abdomen: distended Extremities: other - Edematous lower extremities Oswaldo Nuñez MD Sep 26, 2019 12:12
--- NOTE | 2019-09-26 12:31 | Diagnostic Imaging Report ---
EXAM: ULTRASOUND US Renal Comp CLINICAL HISTORY: Abdominal pain. COMPARISON: None TECHNIQUE: Ultrasound examination of the kidneys includes grayscale images, and color and spectral doppler analysis. FINDINGS: The right kidney measures 9.4 x 3.9 x 4.3 cm and the left kidney measures 9.8 x 4.4 x 4.7 cm. Both kidneys are echogenic reflecting medical renal disease. There are small cysts. There is no hydronephrosis or stone seen bilaterally. Urinary bladder appears unremarkable. IMPRESSION: ECHOGENIC KIDNEYS REFLECTING MEDICAL RENAL DISEASE. BILATERAL RENAL CYSTS. NO OBSTRUCTIVE UROPATHY.
[2019-09-26 20:00] VITALS: BP 150/83
--- NOTE | 2019-09-26 20:29 | General Progress Note ---
Assessment/Plan Problem List: (1) DVT (deep venous thrombosis) ICD Codes: I82.409 - Acute embolism and thrombosis of unspecified deep veins of unspecified lower extremity SNOMED: 942538760 Qualifiers: Qualified Codes: I82.403 - Acute embolism and thrombosis of unspecified deep veins of lower extremity, bilateral (2) CKD (chronic kidney disease) ICD Codes: N18.9 - Chronic kidney disease, unspecified SNOMED: 563170404 Qualifiers: Qualified Codes: N18.4 - Chronic kidney disease, stage 4 (severe) (3) Anemia in chronic kidney disease (CKD) ICD Codes: N18.9 - Chronic kidney disease, unspecified; D63.1 - Anemia in chronic kidney disease SNOMED: 747740851 Status: progressing Assessment/Plan: leg pain consulted dr hidalgo dvt anticoagulant per dr erica chauhan for bleeding Subjective ROS Limited/Unobtainable: Yes Allergies: Coded Allergies: No Known Allergies (Unverified , 06/13/17) Objective Last 24 Hour Vital Signs Date Time Temp Pulse Resp B/P (MAP) Pulse Ox O2 Delivery O2 Flow Rate FiO2 09/26/19 17:02 151/88 09/26/19 13:45 151/88 09/26/19 10:49 97.5 09/26/19 09:00 Room Air 09/26/19 08:30 65 128/77 09/26/19 08:24 128/77 09/26/19 08:23 65 128/77 09/26/19 08:00 97.0 65 18 128/77 (94) 92 09/26/19 06:09 140/90 09/26/19 04:00 97.5 61 18 140/90 (107) 98 09/26/19 00:20 148/90 09/26/19 00:19 148/90 09/26/19 00:00 98.2 60 18 148/90 (109) 96 09/25/19 21:57 63 140/80 09/25/19 21:00 Room Air Intake and Output 09/25/19 09/26/19 19:00 07:00 Intake Total 1320 ml 870 ml Output Total 900 ml 850 ml Balance 420 ml 20 ml Intake Oral 1320 ml 870 ml Output Urine Total 900 ml 850 ml # Voids 6 3 Laboratory Tests 09/26/19 06:40: White Blood Count 6.6, Red Blood Count 3.10L, Hemoglobin 8.9L, Hematocrit 29.3L , Mean Corpuscular Volume 95, Mean Corpuscular Hemoglobin 28.6, Mean Corpuscular Hemoglobin Concent 30.2L, Red Cell Distribution Width 15.6H, Platelet Count 191, Mean Platelet Volume 6.5, Neutrophils (%) (Auto) 54.9, Lymphocytes (%) (Auto) 26.7, Monocytes (%) (Auto) 15.2H, Eosinophils (%) (Auto) 2.3, Basophils (%) (Auto) 1.0, Sodium Level 140, Potassium Level 5.4H, Chloride Level 107, Carbon Dioxide Level 22, Anion Gap 11, Blood Urea Nitrogen 70H, Creatinine 4.4H, Estimat Glomerular Filtration Rate 17.0, Glucose Level 85, Hemoglobin A1c 6.9H, Calcium Level 7.8L, Phosphorus Level 5.3H, Total Bilirubin 0.1L, Aspartate Amino Transf (AST/SGOT) 16, Alanine Aminotransferase (ALT/SGPT) 14, Alkaline Phosphatase 85, Total Protein 6.2L, Albumin 2.7L, Globulin 3.5, Albumin/Globulin Ratio 0.8L, Triglycerides Level 25L, Cholesterol Level 140, LDL Cholesterol 51, HDL Cholesterol 78H, Cholesterol/HDL Ratio 1.8L Height (Feet): 6 Height (Inches): 2.00 Weight (Pounds): 201 Kimberley Duval MD Sep 26, 2019 20:29
[2019-09-26] MEDS ORDERED: Epoetin Alfa-EPBX (NON ESRD)10,000 unit/ml vial SUBQ SCH (21:00)
[2019-09-26] MEDS: Iron Sucrose 100 MG in NS 55 ML IV SCH (21:21)
[2019-09-26 23:23] VITALS: BP 140/79
[2019-09-27] MEDS: HydrALAZINE 50mg tab ORAL SCH ×3 (01:08→17:08)
[2019-09-27 04:00] VITALS: BP 144/99
--- NOTE | 2019-09-27 07:06 | Hematology/Onc Progress Note ---
Assessment/Plan Assessment/Plan Assessment and recs # DVT (deep venous thrombosis) of the left lower ext as well as right lower ext --> confirm with us duplex lower ext --> have dw pulm and renal and has elev cr --> in general best to avoid doac, noac, coumadin, etc --> in this case start eliquis 2.5mg po bid --> partially dialyzable as well if gets hd ever # Anemia of iron deficiency --> Anemia workup has been ordered, rule out gi bleed --> No evidence of hemolysis is noted, peripheral smear has been reviewed. --> Hgb goal >7. Transfuse prn. --> Epogen or iron BOTH started --> Medications have been reviewed # AILYN on CKD (chronic kidney disease) --> as per renal --> hydraton prn --> renal us: bilat cysts # Dvt ppx eliquis The timing of this note does not necessarily reflect the time of the patient was seen. Greatly appreciate consultation. Subjective Allergies: Coded Allergies: No Known Allergies (Unverified , 06/13/17) Subjective 09/25 labs are noted, no bleeding, meds noted, no hemolysis 09/26 alert,, no events, iv iron, eliquis, monitor for bleeding Objective Objective Current Medications Medications (Trade) Dose Ordered Sig/Emilee Route PRN Reason Start Time Stop Time Status Last Admin Dose Admin Acetaminophen (Tylenol) 1,000 mg Q4HR PRN ORAL FOR PAIN 09/25/19 09:00 10/25/19 08:59 09/25/19 18:48 Acetaminophen/ Hydrocodone Bitart ([place] 5/325) 1 tab Q4H PRN ORAL Severe Pain (Pain Scale 7-10) 09/26/19 09:15 10/03/19 09:14 09/26/19 22:42 Amlodipine Besylate (Norvasc) 10 mg DAILY ORAL 09/25/19 09:00 10/25/19 08:59 09/26/19 08:23 Apixaban (Eliquis) 2.5 mg BID ORAL 09/25/19 18:00 12/24/19 17:59 09/26/19 17:02 Calcium Carbonate (Calcium Carbonate) 650 mg THREE TIMES A DAY ORAL 09/25/19 13:00 12/24/19 12:59 09/26/19 17:02 Clonidine HCl (Catapres Tab) 0.1 mg EVERY 8 HOURS ORAL 09/26/19 14:00 12/24/19 06:59 09/27/19 07:00 Diphenhydramine HCl (Benadryl) 25 mg Q4HR PRN ORAL For Itching 09/25/19 09:00 10/25/19 08:59 Divalproex Sodium (Depakote) 500 mg DAILY ORAL 09/25/19 09:00 10/25/19 08:59 09/26/19 08:23 Docusate Sodium (Colace) 100 mg BID ORAL 09/25/19 18:00 10/25/19 08:59 09/26/19 17:02 Epoetin Hakan (Epoetin Hakan-EPBX(NON ESRD)) 10,000 unit THU- SUBQ 09/26/19 21:00 12/25/19 20:59 09/26/19 21:21 Hydralazine HCl (Apresoline) 25 mg Q4HR PRN ORAL BP over 160 systolic 09/25/19 12:15 12/24/19 12:14 Hydralazine HCl (Apresoline) 50 mg Q8H ORAL 09/26/19 16:00 12/24/19 15:59 09/27/19 01:08 Iron Sucrose 100 mg/Sodium Chloride 60 ml @ 240 mls/hr BEDTIME IV 09/25/19 21:00 09/29/19 21:14 09/26/19 21:21 Metoprolol Tartrate (Lopressor) 50 mg EVERY 12 HOURS ORAL 09/25/19 09:00 12/24/19 08:59 09/26/19 21:20 Risperidone (RisperDAL) 2 mg DAILY ORAL 09/25/19 09:00 11/09/19 08:59 09/26/19 08:24 Tamsulosin HCl (Flomax) 0.4 mg BID ORAL 09/25/19 18:00 10/25/19 17:59 09/26/19 17:02 Last 24 Hour Vital Signs Date Time Temp Pulse Resp B/P (MAP) Pulse Ox O2 Delivery O2 Flow Rate FiO2 09/27/19 07:00 144/99 09/27/19 04:00 97.9 69 18 144/99 (114) 95 09/27/19 01:08 140/79 09/26/19 23:23 97.8 70 18 140/79 (99) 96 09/26/19 22:42 143/89 09/26/19 21:20 69 150/83 09/26/19 21:00 Room Air 09/26/19 20:00 97.7 72 17 150/83 (105) 96 09/26/19 17:02 151/88 09/26/19 13:45 151/88 09/26/19 10:49 97.5 09/26/19 09:00 Room Air 09/26/19 08:30 65 128/77 09/26/19 08:24 128/77 09/26/19 08:23 65 128/77 09/26/19 08:00 97.0 65 18 128/77 (94) 92 09/26/19 06:09 140/90 09/26/19 04:00 97.5 61 18 140/90 (107) 98 09/26/19 00:20 148/90 09/26/19 00:19 148/90 09/26/19 00:00 98.2 60 18 148/90 (109) 96 09/25/19 21:57 63 140/80 09/25/19 21:00 Room Air 09/25/19 20:00 98.2 63 20 140/80 (100) 96 09/25/19 18:36 129/70 09/25/19 16:21 123/80 09/25/19 16:00 98.2 66 18 122/70 (87) 96 09/25/19 12:26 134/86 09/25/19 12:00 97.7 66 20 134/86 (102) 96 09/25/19 09:33 69 142/97 09/25/19 09:32 69 142/97 09/25/19 09:30 142/97 09/25/19 09:00 Room Air 09/25/19 08:00 97.1 67 20 152/93 (112) 98 Intake and Output 09/26/19 09/27/19 19:00 07:00 Intake Total 840 ml 360 ml Output Total 1800 ml Balance -960 ml 360 ml Intake Oral 840 ml Other 360 ml Output Urine Total 1300 ml Stool Total 500 ml # Voids 5 Labs Test 09/25/19 00:35 09/25/19 09:30 09/25/19 09:50 09/26/19 06:40 White Blood Count 8.0 K/UL (4.8-10.8) 6.6 K/UL (4.8-10.8) Red Blood Count 3.26 M/UL (4.70-6.10) 3.10 M/UL (4.70-6.10) Hemoglobin 9.6 G/DL (14.2-18.0) 8.9 G/DL (14.2-18.0) Hematocrit 30.2 % (42.0-52.0) 29.3 % (42.0-52.0) Mean Corpuscular Volume 92 FL (80-99) 95 FL (80-99) Mean Corpuscular Hemoglobin 29.4 PG (27.0-31.0) 28.6 PG (27.0-31.0) Mean Corpuscular Hemoglobin Concent 31.8 G/DL (32.0-36.0) 30.2 G/DL (32.0-36.0) Red Cell Distribution Width 16.1 % (11.6-14.8) 15.6 % (11.6-14.8) Platelet Count 205 K/UL (150-450) 191 K/UL (150-450) Mean Platelet Volume 6.2 FL (6.5-10.1) 6.5 FL (6.5-10.1) Neutrophils (%) (Auto) 60.1 % (45.0-75.0) 54.9 % (45.0-75.0) Lymphocytes (%) (Auto) 24.1 % (20.0-45.0) 26.7 % (20.0-45.0) Monocytes (%) (Auto) 11.7 % (1.0-10.0) 15.2 % (1.0-10.0) Eosinophils (%) (Auto) 2.8 % (0.0-3.0) 2.3 % (0.0-3.0) Basophils (%) (Auto) 1.2 % (0.0-2.0) 1.0 % (0.0-2.0) Prothrombin Time 10.4 SEC (9.30-11.50) Prothromb Time International Ratio 0.9 (0.9-1.1) Activated Partial Thromboplast Time 25 SEC (23-33) Sodium Level 141 MMOL/L (136-145) 141 MMOL/L (136-145) 140 MMOL/L (136-145) Potassium Level 4.7 MMOL/L (3.5-5.1) 5.1 MMOL/L (3.5-5.1) 5.4 MMOL/L (3.5-5.1) Chloride Level 106 MMOL/L (98-107) 106 MMOL/L (98-107) 107 MMOL/L (98-107) Carbon Dioxide Level 23 MMOL/L (21-32) 24 MMOL/L (21-32) 22 MMOL/L (21-32) Anion Gap 12 mmol/L (5-15) 11 mmol/L (5-15) 11 mmol/L (5-15) Blood Urea Nitrogen 77 mg/dL (7-18) 71 mg/dL (7-18) 70 mg/dL (7-18) Creatinine 4.6 MG/DL (0.55-1.30) 4.3 MG/DL (0.55-1.30) 4.4 MG/DL (0.55-1.30) Estimat Glomerular Filtration Rate 16.1 mL/min (>60) 17.5 mL/min (>60) 17.0 mL/min (>60) Glucose Level 101 MG/DL (74-106) 82 MG/DL (74-106) 85 MG/DL (74-106) Calcium Level 7.8 MG/DL (8.5-10.1) 7.5 MG/DL (8.5-10.1) 7.8 MG/DL (8.5-10.1) Uric Acid 7.6 MG/DL (2.6-7.2) Phosphorus Level 5.9 MG/DL (2.5-4.9) 5.3 MG/DL (2.5-4.9) Magnesium Level 1.8 MG/DL (1.8-2.4) Iron Level 67 ug/dL (50-175) Total Iron Binding Capacity 301 ug/dL (250-450) Percent Iron Saturation 22 % (15-50) Unsaturated Iron Binding 234 ug/dL (112-346) Ferritin 48 NG/ML (8-388) Total Bilirubin 0.2 MG/DL (0.2-1.0) 0.1 MG/DL (0.2-1.0) Aspartate Amino Transf (AST/SGOT) 15 U/L (15-37) 16 U/L (15-37) Alanine Aminotransferase (ALT/SGPT) 9 U/L (12-78) 14 U/L (12-78) Alkaline Phosphatase 94 U/L (46-116) 85 U/L (46-116) Total Creatine Kinase 268 U/L (26-308) Total Protein 6.5 G/DL (6.4-8.2) 6.2 G/DL (6.4-8.2) Albumin 2.9 G/DL (3.4-5.0) 2.7 G/DL (3.4-5.0) Globulin 3.6 g/dL 3.5 g/dL Albumin/Globulin Ratio 0.8 (1.0-2.7) 0.8 (1.0-2.7) Vitamin B12 Level 502 PG/ML (193-986) Folate 9.1 NG/ML (8.6-58.9) Urine Color Pale yellow Urine Appearance Clear Urine pH 6 (4.5-8.0) Urine Specific [place] 1.010 (1.005-1.035) Urine Protein 3+ (NEGATIVE) Urine Glucose (UA) Negative (NEGATIVE) Urine Ketones Negative (NEGATIVE) Urine Blood 1+ (NEGATIVE) Urine Nitrite Negative (NEGATIVE) Urine Bilirubin Negative (NEGATIVE) Urine Urobilinogen Normal MG/DL (0.0-1.0) Urine Leukocyte Esterase Negative (NEGATIVE) Urine RBC 0-2 /HPF (0 - 0) Urine WBC 0 /HPF (0 - 0) Urine Squamous Epithelial Cells Occasional /LPF Urine Bacteria Occasional /HPF (NONE) Urine Random Sodium 82 mmol/L (20-110) Hemoglobin A1c 6.9 % (4.3-6.0) Triglycerides Level 25 MG/DL (30-150) Cholesterol Level 140 MG/DL (< 200) LDL Cholesterol 51 mg/dL (<100) HDL Cholesterol 78 MG/DL (40-60) Cholesterol/HDL Ratio 1.8 (3.3-4.4) Height (Feet): 6 Height (Inches): 2.00 Weight (Pounds): 201 Objective Vitals: reviewed General: NAD HEENT: nc, at Neck: supple Chest: clear breath sounds bilaterally Cardiovascular: RRR, no s3, s4 Abdomen: soft, nontender, nd Extremities: no cce, normal range of motion left ?right swelling lower leg Neuro: alert and oriented Matt Pantoja MD Sep 27, 2019 07:06
[2019-09-27 08:00] VITALS: BP 152/95
[2019-09-27] MEDS: Tamsulosin 0.4mg cap ORAL SCH ×2 (08:33→17:08)
[2019-09-27] MEDS: Docusate 100mg cap ORAL SCH ×3 (08:34→17:11)
[2019-09-27] MEDS: Eliquis 2.5mg tablet ORAL SCH ×2 (08:35→17:08)
[2019-09-27] MEDS: Calcium Carbonate 650mg Tab ORAL SCH ×3 (08:35→17:08)
[2019-09-27] MEDS: Metoprolol Tartrate 50mg tab ORAL SCH ×2 (08:35→21:09)
[2019-09-27] MEDS: HYDROcodone/Acetamin 5/325 tab ORAL PRN ×2 (08:39→20:15)
--- NOTE | 2019-09-27 10:12 | Pulmonology Progress Note ---
Subjective ROS Limited/Unobtainable: Yes Interval Events: None new Constitutional: Reports: no symptoms HEENT: Repors: no symptoms Respiratory: Reports: no symptoms Gastrointestinal/Abdominal: Reports: no symptoms Genitourinary: Reports: no symptoms Allergies: Coded Allergies: No Known Allergies (Unverified , 06/13/17) Objective Last 24 Hour Vital Signs Date Time Temp Pulse Resp B/P (MAP) Pulse Ox O2 Delivery O2 Flow Rate FiO2 09/27/19 09:09 97.9 09/27/19 08:35 152/95 09/27/19 08:35 65 152/95 09/27/19 08:34 65 152/95 09/27/19 07:00 144/99 09/27/19 04:00 97.9 69 18 144/99 (114) 95 09/27/19 01:08 140/79 09/26/19 23:23 97.8 70 18 140/79 (99) 96 09/26/19 22:42 143/89 09/26/19 21:20 69 150/83 09/26/19 21:00 Room Air 09/26/19 20:00 97.7 72 17 150/83 (105) 96 09/26/19 17:02 151/88 09/26/19 13:45 151/88 Intake and Output 09/26/19 09/27/19 19:00 07:00 Intake Total 840 ml 360 ml Output Total 1800 ml Balance -960 ml 360 ml Intake Oral 840 ml Other 360 ml Output Urine Total 1300 ml Stool Total 500 ml # Voids 5 General Appearance: no acute distress HEENT: normocephalic Respiratory: chest wall non-tender, lungs clear Cardiovascular: normal peripheral pulses, normal rate Abdomen: normal bowel sounds Microbiology Date/Time Source Procedure Growth Status 09/25/19 00:35 Nasal Nares MRSA Culture - Final NO METHICILLIN RESISTANT STAPH AUREUS... Complete 09/25/19 00:35 Rectum VRE Culture - Final NO VANCOMYCIN RESISTANT ENTEROCOCCUS ... Resulted 09/25/19 00:35 Rectum Pending Resulted Current Medications Medications (Trade) Dose Ordered Sig/Emilee Route PRN Reason Start Time Stop Time Status Last Admin Dose Admin Acetaminophen (Tylenol) 1,000 mg Q4HR PRN ORAL FOR PAIN 09/25/19 09:00 10/25/19 08:59 09/25/19 18:48 Acetaminophen/ Hydrocodone Bitart ([place] 5/325) 1 tab Q4H PRN ORAL Severe Pain (Pain Scale 7-10) 09/26/19 09:15 10/03/19 09:14 09/27/19 08:39 Amlodipine Besylate (Norvasc) 10 mg DAILY ORAL 09/25/19 09:00 10/25/19 08:59 09/27/19 08:34 Apixaban (Eliquis) 2.5 mg BID ORAL 09/25/19 18:00 12/24/19 17:59 09/27/19 08:35 Calcium Carbonate (Calcium Carbonate) 650 mg THREE TIMES A DAY ORAL 09/25/19 13:00 12/24/19 12:59 09/27/19 08:35 Clonidine HCl (Catapres Tab) 0.1 mg EVERY 8 HOURS ORAL 09/26/19 14:00 12/24/19 06:59 09/27/19 07:00 Diphenhydramine HCl (Benadryl) 25 mg Q4HR PRN ORAL For Itching 09/25/19 09:00 10/25/19 08:59 Divalproex Sodium (Depakote) 500 mg DAILY ORAL 09/25/19 09:00 10/25/19 08:59 09/27/19 08:36 Docusate Sodium (Colace) 100 mg BID ORAL 09/25/19 18:00 10/25/19 08:59 09/26/19 17:02 Epoetin Hakan (Epoetin Hakan-EPBX(NON ESRD)) 10,000 unit THU-THU-THU SUBQ 09/26/19 21:00 12/25/19 20:59 09/26/19 21:21 Hydralazine HCl (Apresoline) 25 mg Q4HR PRN ORAL BP over 160 systolic 09/25/19 12:15 12/24/19 12:14 Hydralazine HCl (Apresoline) 50 mg Q8H ORAL 09/26/19 16:00 12/24/19 15:59 09/27/19 08:35 Iron Sucrose 100 mg/Sodium Chloride 60 ml @ 240 mls/hr BEDTIME IV 09/25/19 21:00 09/29/19 21:14 09/26/19 21:21 Metoprolol Tartrate (Lopressor) 50 mg EVERY 12 HOURS ORAL 09/25/19 09:00 12/24/19 08:59 09/27/19 08:35 Risperidone (RisperDAL) 2 mg DAILY ORAL 09/25/19 09:00 11/09/19 08:59 09/27/19 08:33 Tamsulosin HCl (Flomax) 0.4 mg BID ORAL 09/25/19 18:00 10/25/19 17:59 09/27/19 08:33 Assessment/Plan Assessment/Plan IMPRESSION: 1. Left lower extremity DVT. 2. Chronic DVT. 3. Hypertension. 4. Diabetes mellitus. 5. Previous CVA. 6. Colostomy. DISCUSSION: The patient has acute on chronic DVT. I will defer the choice of anticoagulant to Hematology. Currently, no evidence of PE. I will follow. Rosina Moody Omar Syed MD Sep 27, 2019 10:12
--- NOTE | 2019-09-27 10:44 | Nephrology Progress Note ---
Assessment/Plan Problem List: (1) CKD (chronic kidney disease) (2) DVT (deep venous thrombosis) (3) Colostomy care (4) Anemia in chronic kidney disease (CKD) Assessment 58-year-old male presents with a DVT of the lower extremity Has acute on chronic kidney disease Anemia of chronic kidney disease Previous intestinal resection status post colostomy . Plan Renal diet Kayexalate as needed for hyperkalemia Adjust blood pressure medication Slow hydration, monitor renal parameters Per consultants Anemia work-up Subcu Epogen Urine studies Kidney ultrasound results noted Per orders Will discuss with patient regarding initiation of hemodialysis. Patient stated that he needs to talk to his sister before accepting dialysis of her. ECHOGENIC KIDNEYS REFLECTING MEDICAL RENAL DISEASE. BILATERAL RENAL CYSTS. NO OBSTRUCTIVE UROPATHY. Subjective ROS Limited/Unobtainable: No Constitutional: Reports: malaise, weakness Objective Objective Last 24 Hour Vital Signs Date Time Temp Pulse Resp B/P (MAP) Pulse Ox O2 Delivery O2 Flow Rate FiO2 09/27/19 09:09 97.9 09/27/19 08:35 152/95 09/27/19 08:35 65 152/95 09/27/19 08:34 65 152/95 09/27/19 07:00 144/99 09/27/19 04:00 97.9 69 18 144/99 (114) 95 09/27/19 01:08 140/79 09/26/19 23:23 97.8 70 18 140/79 (99) 96 09/26/19 22:42 143/89 09/26/19 21:20 69 150/83 09/26/19 21:00 Room Air 09/26/19 20:00 97.7 72 17 150/83 (105) 96 09/26/19 17:02 151/88 09/26/19 13:45 151/88 Intake and Output 09/26/19 09/27/19 19:00 07:00 Intake Total 840 ml 360 ml Output Total 1800 ml Balance -960 ml 360 ml Intake Oral 840 ml Other 360 ml Output Urine Total 1300 ml Stool Total 500 ml # Voids 5 Current Medications Medications (Trade) Dose Ordered Sig/Emilee Route PRN Reason Start Time Stop Time Status Last Admin Dose Admin Acetaminophen (Tylenol) 1,000 mg Q4HR PRN ORAL FOR PAIN 09/25/19 09:00 10/25/19 08:59 09/25/19 18:48 Acetaminophen/ Hydrocodone Bitart ([place] 5/325) 1 tab Q4H PRN ORAL Severe Pain (Pain Scale 7-10) 09/26/19 09:15 10/03/19 09:14 09/27/19 08:39 Amlodipine Besylate (Norvasc) 10 mg DAILY ORAL 09/25/19 09:00 10/25/19 08:59 09/27/19 08:34 Apixaban (Eliquis) 2.5 mg BID ORAL 09/25/19 18:00 12/24/19 17:59 09/27/19 08:35 Calcium Carbonate (Calcium Carbonate) 650 mg THREE TIMES A DAY ORAL 09/25/19 13:00 12/24/19 12:59 09/27/19 08:35 Clonidine HCl (Catapres Tab) 0.1 mg EVERY 8 HOURS ORAL 09/26/19 14:00 12/24/19 06:59 09/27/19 07:00 Diphenhydramine HCl (Benadryl) 25 mg Q4HR PRN ORAL For Itching 09/25/19 09:00 10/25/19 08:59 Divalproex Sodium (Depakote) 500 mg DAILY ORAL 09/25/19 09:00 10/25/19 08:59 09/27/19 08:36 Docusate Sodium (Colace) 100 mg BID ORAL 09/25/19 18:00 10/25/19 08:59 09/26/19 17:02 Epoetin Hakan (Epoetin Hakan-EPBX(NON ESRD)) 10,000 unit THU-THU-THU SUBQ 09/26/19 21:00 12/25/19 20:59 09/26/19 21:21 Hydralazine HCl (Apresoline) 25 mg Q4HR PRN ORAL BP over 160 systolic 09/25/19 12:15 12/24/19 12:14 Hydralazine HCl (Apresoline) 50 mg Q8H ORAL 09/26/19 16:00 12/24/19 15:59 09/27/19 08:35 Iron Sucrose 100 mg/Sodium Chloride 60 ml @ 240 mls/hr BEDTIME IV 09/25/19 21:00 09/29/19 21:14 09/26/19 21:21 Metoprolol Tartrate (Lopressor) 50 mg EVERY 12 HOURS ORAL 09/25/19 09:00 12/24/19 08:59 09/27/19 08:35 Risperidone (RisperDAL) 2 mg DAILY ORAL 09/25/19 09:00 11/09/19 08:59 09/27/19 08:33 Tamsulosin HCl (Flomax) 0.4 mg BID ORAL 09/25/19 18:00 10/25/19 17:59 09/27/19 08:33 Laboratory Tests Test 09/27/19 08:41 Sodium Level 140 MMOL/L (136-145) Potassium Level 4.5 MMOL/L (3.5-5.1) Chloride Level 106 MMOL/L (98-107) Carbon Dioxide Level 22 MMOL/L (21-32) Anion Gap 12 mmol/L (5-15) Blood Urea Nitrogen 77 mg/dL (7-18) H Creatinine 4.4 MG/DL (0.55-1.30) H Estimat Glomerular Filtration Rate 17.0 mL/min (>60) Glucose Level 106 MG/DL (74-106) Calcium Level 7.6 MG/DL (8.5-10.1) L Phosphorus Level 5.6 MG/DL (2.5-4.9) H Total Bilirubin < 0.1 MG/DL (0.2-1.0) L Aspartate Amino Transf (AST/SGOT) 15 U/L (15-37) Alanine Aminotransferase (ALT/SGPT) 14 U/L (12-78) Alkaline Phosphatase 90 U/L (46-116) Total Protein 6.4 G/DL (6.4-8.2) Albumin 2.8 G/DL (3.4-5.0) L Globulin 3.6 g/dL Albumin/Globulin Ratio 0.8 (1.0-2.7) L Today's labs ordered results pending Height (Feet): 6 Height (Inches): 2.00 Weight (Pounds): 201 General Appearance: no apparent distress Cardiovascular: normal rate Respiratory/Chest: decreased breath sounds Abdomen: soft, other - Colostomy Oswaldo Nuñez MD Sep 27, 2019 10:44
[2019-09-27 11:09] LABS: ANION GAP 12 mmol/L (5-15); BLOOD UREA NITROGEN 77 mg/dL (7-18); CALCIUM 7.6 MG/DL (8.5-10.1); CARBON DIOXIDE 22 MMOL/L (21-32); CHLORIDE 106 MMOL/L (98-107); CREATININE 4.4 MG/DL (0.55-1.30); POTASSIUM 4.5 MMOL/L (3.5-5.1); SODIUM 140 MMOL/L (136-145)
[2019-09-27 11:11] LABS: ALANINE AMINOTRANSFERASE 14 U/L (12-78); ALBUMIN 2.8 G/DL (3.4-5.0); ALBUMIN/GLOBULIN RATIO 0.8 (1.0-2.7); ALKALINE PHOSPHATASE 90 U/L (46-116); ASPARTATE AMINO TRANSFERASE 15 U/L (15-37); BILIRUBIN,TOTAL < 0.1 MG/DL (0.2-1.0); PHOSPHORUS 5.6 MG/DL (2.5-4.9)
[2019-09-27 11:40] VITALS: BP 142/84
--- NOTE | 2019-09-27 13:38 | Consultation ---
History of Present Illness General Date patient seen: Sep 27, 2019 Chief Complaint: Present Illness Allergies: Coded Allergies: No Known Allergies (Unverified , 06/13/17) Medication History Scheduled Acetaminophen* (Tylenol Extra Strength*), 1,000 MG ORAL Q4HR, (Reported) Acetaminophen* (Tylenol Extra Strength*), 1,000 MG ORAL Q4HR, (Reported) Amlodipine Besylate (Norvasc), 10 MG ORAL DAILY Clonidine Hcl* (Catapres*), 0.1 MG ORAL EVERY 6 HOURS, (Reported) Diphenhydramine Hcl* (Diphenhydramine Hcl*), 25 MG ORAL Q4HR, (Reported) Divalproex Sodium* (Depakote*), 500 MG PO DAILY, (Reported) Docusate Sodium* (Colace*), 100 MG ORAL DAILY, (Reported) Hydralazine Hcl* (Hydralazine Hcl*), 50 MG ORAL EVERY 8 HOURS, (Reported) Metoprolol Tartrate* (Metoprolol Tartrate*), 50 MG ORAL EVERY 12 HOURS, ( Reported) Risperidone* (Risperdal*), 2 MG ORAL DAILY, (Reported) Zinc Sulfate (Zinc Sulfate*), 220 MG ORAL DAILY, (Reported) Miscellaneous Medications Ascorbic Acid/Ascorbate Sodium (Vitamin C 250 mg Tablet Chew), 500 MG PO, ( Reported) Cranberry Fruit (Cranberry), 450 MG PO, (Reported) Multivit &Minerals/Ferrous Fum (Complete Multivit-Mineral Liq), 9 MG PO, ( Reported) Durable Medical Equipment Colostomy Bags (Drainable Pouch), EACH , (DME) Patient History Healthcare decision maker Resuscitation status Advanced Directive on File Physical Exam Last 24 Hour Vital Signs Date Time Temp Pulse Resp B/P (MAP) Pulse Ox O2 Delivery O2 Flow Rate FiO2 09/27/19 13:32 142/84 09/27/19 11:40 97.0 62 20 142/84 (103) 94 09/27/19 09:09 97.9 09/27/19 09:00 Room Air 09/27/19 08:35 152/95 09/27/19 08:35 65 152/95 09/27/19 08:34 65 152/95 09/27/19 08:00 97.0 65 20 152/95 (114) 94 09/27/19 07:00 144/99 09/27/19 04:00 97.9 69 18 144/99 (114) 95 09/27/19 01:08 140/79 09/26/19 23:23 97.8 70 18 140/79 (99) 96 09/26/19 22:42 143/89 09/26/19 21:20 69 150/83 09/26/19 21:00 Room Air 09/26/19 20:00 97.7 72 17 150/83 (105) 96 09/26/19 17:02 151/88 09/26/19 13:45 151/88 Intake and Output 09/26/19 09/27/19 19:00 07:00 Intake Total 840 ml 360 ml Output Total 1800 ml Balance -960 ml 360 ml Intake Oral 840 ml Other 360 ml Output Urine Total 1300 ml Stool Total 500 ml # Voids 5 Laboratory Tests Test 09/27/19 08:41 Sodium Level 140 MMOL/L (136-145) Potassium Level 4.5 MMOL/L (3.5-5.1) Chloride Level 106 MMOL/L (98-107) Carbon Dioxide Level 22 MMOL/L (21-32) Anion Gap 12 mmol/L (5-15) Blood Urea Nitrogen 77 mg/dL (7-18) H Creatinine 4.4 MG/DL (0.55-1.30) H Estimat Glomerular Filtration Rate 17.0 mL/min (>60) Glucose Level 106 MG/DL (74-106) Calcium Level 7.6 MG/DL (8.5-10.1) L Phosphorus Level 5.6 MG/DL (2.5-4.9) H Total Bilirubin < 0.1 MG/DL (0.2-1.0) L Aspartate Amino Transf (AST/SGOT) 15 U/L (15-37) Alanine Aminotransferase (ALT/SGPT) 14 U/L (12-78) Alkaline Phosphatase 90 U/L (46-116) Total Protein 6.4 G/DL (6.4-8.2) Albumin 2.8 G/DL (3.4-5.0) L Globulin 3.6 g/dL Albumin/Globulin Ratio 0.8 (1.0-2.7) L Height (Feet): 6 Height (Inches): 2.00 Weight (Pounds): 201 Medications Current Medications Medications (Trade) Dose Ordered Sig/Emilee Route PRN Reason Start Time Stop Time Status Last Admin Dose Admin Acetaminophen (Tylenol) 1,000 mg Q4HR PRN ORAL FOR PAIN 09/25/19 09:00 10/25/19 08:59 09/25/19 18:48 Acetaminophen/ Hydrocodone Bitart ([place] 5/325) 1 tab Q4H PRN ORAL Severe Pain (Pain Scale 7-10) 09/26/19 09:15 10/03/19 09:14 09/27/19 08:39 Amlodipine Besylate (Norvasc) 10 mg DAILY ORAL 09/25/19 09:00 10/25/19 08:59 09/27/19 08:34 Apixaban (Eliquis) 2.5 mg BID ORAL 09/25/19 18:00 12/24/19 17:59 09/27/19 08:35 Calcium Carbonate (Calcium Carbonate) 650 mg THREE TIMES A DAY ORAL 09/25/19 13:00 12/24/19 12:59 09/27/19 13:32 Clonidine HCl (Catapres Tab) 0.1 mg EVERY 8 HOURS ORAL 09/26/19 14:00 12/24/19 06:59 09/27/19 13:32 Diphenhydramine HCl (Benadryl) 25 mg Q4HR PRN ORAL For Itching 09/25/19 09:00 10/25/19 08:59 Divalproex Sodium (Depakote) 500 mg DAILY ORAL 09/25/19 09:00 10/25/19 08:59 09/27/19 08:36 Docusate Sodium (Colace) 100 mg BID ORAL 09/25/19 18:00 10/25/19 08:59 09/26/19 17:02 Epoetin Hakan (Epoetin Hakan-EPBX(NON ESRD)) 10,000 unit THU-THU-THU SUBQ 09/26/19 21:00 12/25/19 20:59 09/26/19 21:21 Hydralazine HCl (Apresoline) 25 mg Q4HR PRN ORAL BP over 160 systolic 09/25/19 12:15 12/24/19 12:14 Hydralazine HCl (Apresoline) 50 mg Q8H ORAL 09/26/19 16:00 12/24/19 15:59 09/27/19 08:35 Iron Sucrose 100 mg/Sodium Chloride 60 ml @ 240 mls/hr BEDTIME IV 09/25/19 21:00 09/29/19 21:14 09/26/19 21:21 Metoprolol Tartrate (Lopressor) 50 mg EVERY 12 HOURS ORAL 09/25/19 09:00 12/24/19 08:59 09/27/19 08:35 Risperidone (RisperDAL) 2 mg DAILY ORAL 09/25/19 09:00 11/09/19 08:59 09/27/19 08:33 Tamsulosin HCl (Flomax) 0.4 mg BID ORAL 09/25/19 18:00 10/25/19 17:59 09/27/19 08:33 Assessment/Plan Assessment/Plan: (1) B/L LE pain and DVT (2) Lumbar DDD (3) Lumbar Spondylosis seen dictated Luan Bañuelos Sep 27, 2019 13:38
[2019-09-27 16:00] VITALS: BP_SYST 137; BP_SYST 138; BP_DIAS 75; BP_DIAS 86
--- NOTE | 2019-09-27 17:03 | General Progress Note ---
Assessment/Plan Problem List: (1) DVT (deep venous thrombosis) ICD Codes: I82.409 - Acute embolism and thrombosis of unspecified deep veins of unspecified lower extremity SNOMED: 737234672 Qualifiers: Qualified Codes: I82.403 - Acute embolism and thrombosis of unspecified deep veins of lower extremity, bilateral (2) CKD (chronic kidney disease) ICD Codes: N18.9 - Chronic kidney disease, unspecified SNOMED: 130172696 Qualifiers: Qualified Codes: N18.4 - Chronic kidney disease, stage 4 (severe) (3) Anemia in chronic kidney disease (CKD) ICD Codes: N18.9 - Chronic kidney disease, unspecified; D63.1 - Anemia in chronic kidney disease SNOMED: 095612940 Status: progressing Assessment/Plan: dvt anticoagulant per dr erica chauhan for bleeding pain is somewhat better thinking about diaylsis Subjective ROS Limited/Unobtainable: Yes Allergies: Coded Allergies: No Known Allergies (Unverified , 06/13/17) Objective Last 24 Hour Vital Signs Date Time Temp Pulse Resp B/P (MAP) Pulse Ox O2 Delivery O2 Flow Rate FiO2 09/27/19 16:00 97.3 55 20 137/86 (103) 96 09/27/19 13:32 142/84 09/27/19 11:40 97.0 62 20 142/84 (103) 94 09/27/19 09:09 97.9 09/27/19 09:00 Room Air 09/27/19 08:35 152/95 09/27/19 08:35 65 152/95 09/27/19 08:34 65 152/95 09/27/19 08:00 97.0 65 20 152/95 (114) 94 09/27/19 07:00 144/99 09/27/19 04:00 97.9 69 18 144/99 (114) 95 09/27/19 01:08 140/79 09/26/19 23:23 97.8 70 18 140/79 (99) 96 09/26/19 22:42 143/89 09/26/19 21:20 69 150/83 09/26/19 21:00 Room Air 09/26/19 20:00 97.7 72 17 150/83 (105) 96 Intake and Output 09/26/19 09/27/19 19:00 07:00 Intake Total 840 ml 360 ml Output Total 1800 ml Balance -960 ml 360 ml Intake Oral 840 ml Other 360 ml Output Urine Total 1300 ml Stool Total 500 ml # Voids 5 Laboratory Tests 09/27/19 08:41: Sodium Level 140, Potassium Level 4.5, Chloride Level 106, Carbon Dioxide Level 22, Anion Gap 12, Blood Urea Nitrogen 77H, Creatinine 4.4H, Estimat Glomerular Filtration Rate 17.0, Glucose Level 106, Calcium Level 7.6L, Phosphorus Level 5.6H, Total Bilirubin < 0.1L, Aspartate Amino Transf (AST/SGOT) 15, Alanine Aminotransferase (ALT/SGPT) 14, Alkaline Phosphatase 90, Total Protein 6.4, Albumin 2.8L, Globulin 3.6, Albumin/Globulin Ratio 0.8L Height (Feet): 6 Height (Inches): 2.00 Weight (Pounds): 201 Kimberley Duval MD Sep 27, 2019 17:03
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
[2019-09-27 20:00] VITALS: BP 122/81
[2019-09-27] MEDS: Iron Sucrose 100 MG in NS 55 ML IV SCH (21:09)
[2019-09-28] VITALS: BP 130/82
[2019-09-28] MEDS: HydrALAZINE 50mg tab ORAL SCH ×2 (01:01→08:11)
[2019-09-28 04:00] VITALS: BP 158/100
--- NOTE | 2019-09-28 05:30 | Consultation ---
DATE OF CONSULTATION: 09/27/2019 CONSULTING PHYSICIAN: Carole Chacon MD HISTORY OF PRESENT ILLNESS: This is a 58-year-old male, who is well familiar with , who is being admitted to the hospital for medical stabilization. The patient has a history of schizoaffective disorder, hypertension, diabetes mellitus, and history of previous colostomy. The patient is complaining of fatigue and somnolence during the day. His medication is changed during the morning time. The patient has irritable mood with mood lability. PAST PSYCHIATRIC HISTORY: Schizoaffective disorder, several psychiatric hospitalizations, the last hospitalization was recently, and he is on Depakote and risperidone. PAST MEDICAL HISTORY: Hypertension, diabetes mellitus, history of colostomy. ALLERGIES: No known drug allergies. SUBSTANCE USE HISTORY: No known history of illicit drug use or alcohol. SOCIAL HISTORY: The patient resides in a [facility] and is on disability. MENTAL STATUS EXAMINATION: Alert, oriented times self, place, situation, and date. Mood is irritable. Affect is constricted, congruent with mood. Thought process is concrete. Thought content, no suicidal or homicidal ideation. Cognition is impaired. Insight and judgment impaired. ASSESSMENT: Troy I Schizoaffective disorder Troy II Deferred. Troy III As above. Troy IV Low. Troy V 20. PLAN: 1. Start the patient on risperidone 2 mg at bedtime. 2. Depakote 500 mg at bedtime. 3. Provide the patient with reality orientation and supportive therapy. Carole Chacon M.D. DR: PRIYA JOB#: [id number] CC:
[2019-09-28 06:36] LABS: BASOPHILS % (AUTO) 1.4 % (0.0-2.0); EOSINOPHILS % (AUTO) 1.9 % (0.0-3.0); HEMATOCRIT 31.4 % (42.0-52.0); HEMOGLOBIN 9.6 G/DL (14.2-18.0); LYMPHOCYTES % (AUTO) 17.3 % (20.0-45.0); MEAN CORPUSCULAR VOLUME 94 FL (80-99); MONOCYTES % (AUTO) 12.3 % (1.0-10.0); NEUTROPHILS % (AUTO) 67.1 % (45.0-75.0); PLATELET COUNT 198 K/UL (150-450); RED BLOOD COUNT 3.32 M/UL (4.70-6.10); WHITE BLOOD COUNT 9.5 K/UL (4.8-10.8)
[2019-09-28 07:14] LABS: ALANINE AMINOTRANSFERASE 11 U/L (12-78); ALBUMIN/GLOBULIN RATIO 0.8 (1.0-2.7); ALKALINE PHOSPHATASE 93 U/L (46-116); ANION GAP 13 mmol/L (5-15); ASPARTATE AMINO TRANSFERASE 19 U/L (15-37); BILIRUBIN,TOTAL 0.2 MG/DL (0.2-1.0); BLOOD UREA NITROGEN 79 mg/dL (7-18); CARBON DIOXIDE 23 MMOL/L (21-32); CHLORIDE 106 MMOL/L (98-107); CREATININE 4.2 MG/DL (0.55-1.30); PHOSPHORUS 5.4 MG/DL (2.5-4.9); POTASSIUM 4.6 MMOL/L (3.5-5.1); SODIUM 141 MMOL/L (136-145)
[2019-09-28 08:00] VITALS: BP 120/78
[2019-09-28] MEDS: Calcium Carbonate 650mg Tab ORAL SCH ×2 (08:10→13:33)
[2019-09-28] MEDS: Docusate 100mg cap ORAL SCH (08:10)
[2019-09-28] MEDS: Tamsulosin 0.4mg cap ORAL SCH (08:11)
[2019-09-28] MEDS: Eliquis 2.5mg tablet ORAL SCH (08:11)
[2019-09-28] MEDS: Metoprolol Tartrate 50mg tab ORAL SCH (08:12)
[2019-09-28] MEDS ORDERED: ELIQUIS2.5 MG PO (09:25)
--- NOTE | 2019-09-28 09:48 | Nephrology Progress Note ---
Assessment/Plan Problem List: (1) CKD (chronic kidney disease) Assessment: Creatinine clearance of 17 (2) DVT (deep venous thrombosis) (3) Colostomy care (4) Anemia in chronic kidney disease (CKD) (5) Hypertensive kidney disease Assessment 58-year-old male presents with a DVT of the lower extremity Has acute on chronic kidney disease Anemia of chronic kidney disease Previous intestinal resection status post colostomy . Plan September 27: I discussed the initiation of dialysis with the patient. He is still indecisive. I called his sister Samantha at [phone] and she was very responsive .she will talk to the patient and if they agree to dialysis then we can make arrangements to arrange for temporary catheter placement and dialysis in the coming week in the interim patient is stable to be discharged back to the nursing facility at this time with current medication and diet order. Renal diet Kayexalate as needed for hyperkalemia Adjust blood pressure medication Slow hydration, monitor renal parameters Per consultants Anemia work-up Subcu Epogen Urine studies Kidney ultrasound results noted Per orders Will discuss with patient regarding initiation of hemodialysis. Patient stated that he needs to talk to his sister before accepting dialysis of her. ECHOGENIC KIDNEYS REFLECTING MEDICAL RENAL DISEASE. BILATERAL RENAL CYSTS. NO OBSTRUCTIVE UROPATHY. Subjective ROS Limited/Unobtainable: No Constitutional: Reports: malaise Objective Objective Last 24 Hour Vital Signs Date Time Temp Pulse Resp B/P (MAP) Pulse Ox O2 Delivery O2 Flow Rate FiO2 09/28/19 08:12 60 145/92 09/28/19 08:12 60 145/92 09/28/19 08:11 145/92 09/28/19 06:43 158/100 09/28/19 04:00 97.2 58 18 158/100 (119) 96 09/28/19 01:01 130/82 09/28/19 00:00 98.0 67 18 130/82 (98) 97 09/27/19 22:28 151/89 09/27/19 21:09 58 145/101 09/27/19 21:00 Room Air 09/27/19 20:00 97.3 60 18 122/81 (95) 97 09/27/19 17:08 137/86 09/27/19 16:00 97.3 55 20 137/86 (103) 96 09/27/19 13:32 142/84 09/27/19 11:40 97.0 62 20 142/84 (103) 94 Intake and Output 09/27/19 09/28/19 19:00 07:00 Intake Total 1060 ml 240 ml Output Total 2700 ml 750 ml Balance -1640 ml -510 ml Intake Oral 1060 ml IV Total 240 ml Output Urine Total 2700 ml 750 ml Current Medications Medications (Trade) Dose Ordered Sig/Emilee Route PRN Reason Start Time Stop Time Status Last Admin Dose Admin Acetaminophen (Tylenol) 1,000 mg Q4HR PRN ORAL FOR PAIN 09/25/19 09:00 10/25/19 08:59 09/25/19 18:48 Acetaminophen/ Hydrocodone Bitart ([place] 5/325) 1 tab Q4H PRN ORAL Severe Pain (Pain Scale 7-10) 09/26/19 09:15 10/03/19 09:14 09/27/19 20:15 Amlodipine Besylate (Norvasc) 10 mg DAILY ORAL 09/25/19 09:00 10/25/19 08:59 09/28/19 08:12 Apixaban (Eliquis) 2.5 mg BID ORAL 09/25/19 18:00 12/24/19 17:59 09/28/19 08:11 Calcium Carbonate (Calcium Carbonate) 650 mg THREE TIMES A DAY ORAL 09/25/19 13:00 12/24/19 12:59 09/28/19 08:10 Clonidine HCl (Catapres Tab) 0.1 mg EVERY 8 HOURS ORAL 09/26/19 14:00 12/24/19 06:59 09/28/19 06:43 Diphenhydramine HCl (Benadryl) 25 mg Q4HR PRN ORAL For Itching 09/25/19 09:00 10/25/19 08:59 Divalproex Sodium (Depakote) 500 mg BEDTIME ORAL 09/28/19 21:00 10/28/19 20:59 Docusate Sodium (Colace) 100 mg BID ORAL 09/25/19 18:00 10/25/19 08:59 09/28/19 08:10 Epoetin Hakan (Epoetin Hakan-EPBX(NON ESRD)) 10,000 unit THU-THU-THU SUBQ 09/26/19 21:00 9/13/20 20:59 09/26/19 21:21 Hydralazine HCl (Apresoline) 25 mg Q4HR PRN ORAL BP over 160 systolic 09/25/19 12:15 12/24/19 12:14 Hydralazine HCl (Apresoline) 50 mg Q8H ORAL 09/26/19 16:00 12/24/19 15:59 09/28/19 08:11 Iron Sucrose 100 mg/Sodium Chloride 60 ml @ 240 mls/hr BEDTIME IV 09/25/19 21:00 09/29/19 21:14 09/27/19 21:09 Metoprolol Tartrate (Lopressor) 50 mg EVERY 12 HOURS ORAL 09/25/19 09:00 12/24/19 08:59 09/28/19 08:12 Risperidone (RisperDAL) 2 mg BEDTIME ORAL 09/28/19 21:00 11/12/19 20:59 Tamsulosin HCl (Flomax) 0.4 mg BID ORAL 09/25/19 18:00 10/25/19 17:59 09/28/19 08:11 Laboratory Tests 09/28/19 05:46: White Blood Count 9.5, Red Blood Count 3.32L, Hemoglobin 9.6L, Hematocrit 31.4L , Mean Corpuscular Volume 94, Mean Corpuscular Hemoglobin 29.0, Mean Corpuscular Hemoglobin Concent 30.7L, Red Cell Distribution Width 16.0H, Platelet Count 198, Mean Platelet Volume 6.2L, Neutrophils (%) (Auto) 67.1, Lymphocytes (%) (Auto) 17.3L, Monocytes (%) (Auto) 12.3H, Eosinophils (%) (Auto ) 1.9, Basophils (%) (Auto) 1.4, Sodium Level 141, Potassium Level 4.6, Chloride Level 106, Carbon Dioxide Level 23, Anion Gap 13, Blood Urea Nitrogen 79H, Creatinine 4.2H, Estimat Glomerular Filtration Rate 17.9, Glucose Level 81 , Uric Acid 8.2H, Calcium Level 8.0L, Phosphorus Level 5.4H, Total Bilirubin 0.2 , Aspartate Amino Transf (AST/SGOT) 19, Alanine Aminotransferase (ALT/SGPT) 11L , Alkaline Phosphatase 93, C-Reactive Protein, Quantitative < 0.4, Pro-B-Type Natriuretic Peptide 1246H, Total Protein 6.8, Albumin 3.0L, Globulin 3.8, Albumin/Globulin Ratio 0.8L, Hepatitis B Surface Antigen [Pending], Hepatitis B Surface Antibody, Quant [Pending], Hepatitis C Antibody [Pending] Height (Feet): 6 Height (Inches): 2.00 Weight (Pounds): 200 General Appearance: no apparent distress Cardiovascular: normal rate Respiratory/Chest: decreased breath sounds Abdomen: soft, distended, other - Colostomy in place Extremities: other - Will legs edematous Oswaldo Nuñez MD Sep 28, 2019 09:48
--- NOTE | 2019-09-28 09:50 | General Progress Note ---
Assessment/Plan Assessment/Plan: (1) B/L LE pain and DVT (2) Lumbar DDD (3) Lumbar Spondylosis Patient to be continued on Hooper D/w Dr. Serrato and he concurred. Subjective Date patient seen: Sep 28, 2019 Time patient seen: 09:30 - am Allergies: Coded Allergies: No Known Allergies (Unverified , 06/13/17) Subjective REVIEW OF SYSTEMS: Denies rash, fever, chills, sweating, dizziness, drowsiness, blurred vision, sore throat, change in weight. No shortness of breath or chest pain. No nausea, vomiting, diarrhea, blood in the stool or urine. No dysuria. SUBJECTIVE: He is doing well and tolerating the pain on the Hooper, no new complaints at this time. Objective Last 24 Hour Vital Signs Date Time Temp Pulse Resp B/P (MAP) Pulse Ox O2 Delivery O2 Flow Rate FiO2 09/28/19 08:12 60 145/92 09/28/19 08:12 60 145/92 09/28/19 08:11 145/92 09/28/19 06:43 158/100 09/28/19 04:00 97.2 58 18 158/100 (119) 96 09/28/19 01:01 130/82 09/28/19 00:00 98.0 67 18 130/82 (98) 97 09/27/19 22:28 151/89 09/27/19 21:09 58 145/101 09/27/19 21:00 Room Air 09/27/19 20:00 97.3 60 18 122/81 (95) 97 09/27/19 17:08 137/86 09/27/19 16:00 97.3 55 20 137/86 (103) 96 09/27/19 13:32 142/84 09/27/19 11:40 97.0 62 20 142/84 (103) 94 Intake and Output 09/27/19 09/28/19 19:00 07:00 Intake Total 1060 ml 240 ml Output Total 2700 ml 750 ml Balance -1640 ml -510 ml Intake Oral 1060 ml IV Total 240 ml Output Urine Total 2700 ml 750 ml Laboratory Tests 09/28/19 05:46: White Blood Count 9.5, Red Blood Count 3.32L, Hemoglobin 9.6L, Hematocrit 31.4L , Mean Corpuscular Volume 94, Mean Corpuscular Hemoglobin 29.0, Mean Corpuscular Hemoglobin Concent 30.7L, Red Cell Distribution Width 16.0H, Platelet Count 198, Mean Platelet Volume 6.2L, Neutrophils (%) (Auto) 67.1, Lymphocytes (%) (Auto) 17.3L, Monocytes (%) (Auto) 12.3H, Eosinophils (%) (Auto ) 1.9, Basophils (%) (Auto) 1.4, Sodium Level 141, Potassium Level 4.6, Chloride Level 106, Carbon Dioxide Level 23, Anion Gap 13, Blood Urea Nitrogen 79H, Creatinine 4.2H, Estimat Glomerular Filtration Rate 17.9, Glucose Level 81 , Uric Acid 8.2H, Calcium Level 8.0L, Phosphorus Level 5.4H, Total Bilirubin 0.2 , Aspartate Amino Transf (AST/SGOT) 19, Alanine Aminotransferase (ALT/SGPT) 11L , Alkaline Phosphatase 93, C-Reactive Protein, Quantitative < 0.4, Pro-B-Type Natriuretic Peptide 1246H, Total Protein 6.8, Albumin 3.0L, Globulin 3.8, Albumin/Globulin Ratio 0.8L, Hepatitis B Surface Antigen [Pending], Hepatitis B Surface Antibody, Quant [Pending], Hepatitis C Antibody [Pending] Height (Feet): 6 Height (Inches): 2.00 Weight (Pounds): 200 Objective GENERAL: Alert, awake, and oriented. LUNGS: Decreased breath sounds bilaterally. HEART: S1 and S2 regular. ABDOMEN: Colostomy bag noted. BACK: Range of motion is decreased in flexion and extension. EXTREMITIES: No cyanosis. No clubbing. NEURO: No changes. Luan Bañuelos Sep 28, 2019 09:49
--- NOTE | 2019-09-28 10:07 | Pulmonology Progress Note ---
Subjective ROS Limited/Unobtainable: No Interval Events: None new Constitutional: Reports: no symptoms HEENT: Repors: no symptoms Respiratory: Reports: no symptoms Gastrointestinal/Abdominal: Reports: no symptoms Genitourinary: Reports: no symptoms Allergies: Coded Allergies: No Known Allergies (Unverified , 06/13/17) Objective Last 24 Hour Vital Signs Date Time Temp Pulse Resp B/P (MAP) Pulse Ox O2 Delivery O2 Flow Rate FiO2 09/28/19 08:12 60 145/92 09/28/19 08:12 60 145/92 09/28/19 08:11 145/92 09/28/19 06:43 158/100 09/28/19 04:00 97.2 58 18 158/100 (119) 96 09/28/19 01:01 130/82 09/28/19 00:00 98.0 67 18 130/82 (98) 97 09/27/19 22:28 151/89 09/27/19 21:09 58 145/101 09/27/19 21:00 Room Air 09/27/19 20:00 97.3 60 18 122/81 (95) 97 09/27/19 17:08 137/86 09/27/19 16:00 97.3 55 20 137/86 (103) 96 09/27/19 13:32 142/84 09/27/19 11:40 97.0 62 20 142/84 (103) 94 Intake and Output 09/27/19 09/28/19 19:00 07:00 Intake Total 1060 ml 240 ml Output Total 2700 ml 750 ml Balance -1640 ml -510 ml Intake Oral 1060 ml IV Total 240 ml Output Urine Total 2700 ml 750 ml General Appearance: no acute distress HEENT: normocephalic Respiratory: chest wall non-tender, lungs clear Cardiovascular: normal peripheral pulses, normal rate Abdomen: normal bowel sounds Laboratory Tests 09/28/19 05:46: White Blood Count 9.5, Red Blood Count 3.32L, Hemoglobin 9.6L, Hematocrit 31.4L , Mean Corpuscular Volume 94, Mean Corpuscular Hemoglobin 29.0, Mean Corpuscular Hemoglobin Concent 30.7L, Red Cell Distribution Width 16.0H, Platelet Count 198, Mean Platelet Volume 6.2L, Neutrophils (%) (Auto) 67.1, Lymphocytes (%) (Auto) 17.3L, Monocytes (%) (Auto) 12.3H, Eosinophils (%) (Auto ) 1.9, Basophils (%) (Auto) 1.4, Sodium Level 141, Potassium Level 4.6, Chloride Level 106, Carbon Dioxide Level 23, Anion Gap 13, Blood Urea Nitrogen 79H, Creatinine 4.2H, Estimat Glomerular Filtration Rate 17.9, Glucose Level 81 , Uric Acid 8.2H, Calcium Level 8.0L, Phosphorus Level 5.4H, Total Bilirubin 0.2 , Aspartate Amino Transf (AST/SGOT) 19, Alanine Aminotransferase (ALT/SGPT) 11L , Alkaline Phosphatase 93, C-Reactive Protein, Quantitative < 0.4, Pro-B-Type Natriuretic Peptide 1246H, Total Protein 6.8, Albumin 3.0L, Globulin 3.8, Albumin/Globulin Ratio 0.8L, Hepatitis B Surface Antigen [Pending], Hepatitis B Surface Antibody, Quant [Pending], Hepatitis C Antibody [Pending] Current Medications Medications (Trade) Dose Ordered Sig/Emilee Route PRN Reason Start Time Stop Time Status Last Admin Dose Admin Acetaminophen (Tylenol) 1,000 mg Q4HR PRN ORAL FOR PAIN 09/25/19 09:00 10/25/19 08:59 09/25/19 18:48 Acetaminophen/ Hydrocodone Bitart ([place] 5/325) 1 tab Q4H PRN ORAL Severe Pain (Pain Scale 7-10) 09/26/19 09:15 10/03/19 09:14 09/27/19 20:15 Amlodipine Besylate (Norvasc) 10 mg DAILY ORAL 09/25/19 09:00 10/25/19 08:59 09/28/19 08:12 Apixaban (Eliquis) 2.5 mg BID ORAL 09/25/19 18:00 12/24/19 17:59 09/28/19 08:11 Calcium Carbonate (Calcium Carbonate) 650 mg THREE TIMES A DAY ORAL 09/25/19 13:00 12/24/19 12:59 09/28/19 08:10 Clonidine HCl (Catapres Tab) 0.1 mg EVERY 8 HOURS ORAL 09/26/19 14:00 12/24/19 06:59 09/28/19 06:43 Diphenhydramine HCl (Benadryl) 25 mg Q4HR PRN ORAL For Itching 09/25/19 09:00 10/25/19 08:59 Divalproex Sodium (Depakote) 500 mg BEDTIME ORAL 09/28/19 21:00 10/28/19 20:59 Docusate Sodium (Colace) 100 mg BID ORAL 09/25/19 18:00 10/25/19 08:59 09/28/19 08:10 Epoetin Hakan (Epoetin Hakan-EPBX(NON ESRD)) 10,000 unit THU- SUBQ 09/26/19 21:00 12/25/19 20:59 09/26/19 21:21 Hydralazine HCl (Apresoline) 25 mg Q4HR PRN ORAL BP over 160 systolic 09/25/19 12:15 12/24/19 12:14 Hydralazine HCl (Apresoline) 50 mg Q8H ORAL 09/26/19 16:00 12/24/19 15:59 09/28/19 08:11 Iron Sucrose 100 mg/Sodium Chloride 60 ml @ 240 mls/hr BEDTIME IV 09/25/19 21:00 09/29/19 21:14 09/27/19 21:09 Metoprolol Tartrate (Lopressor) 50 mg EVERY 12 HOURS ORAL 09/25/19 09:00 12/24/19 08:59 09/28/19 08:12 Risperidone (RisperDAL) 2 mg BEDTIME ORAL 09/28/19 21:00 11/12/19 20:59 Tamsulosin HCl (Flomax) 0.4 mg BID ORAL 09/25/19 18:00 10/25/19 17:59 09/28/19 08:11 Assessment/Plan Assessment/Plan IMPRESSION: 1. Left lower extremity DVT. 2. Chronic DVT. 3. Hypertension. 4. Diabetes mellitus. 5. Previous CVA. 6. Colostomy. DISCUSSION: The patient has acute on chronic DVT. I will defer the choice of anticoagulant to Hematology. Currently, no evidence of PE. I will follow. HD per renal [place] TirRosina garcia Omar Syed MD Sep 28, 2019 10:07
[2019-09-28] MEDS: HYDROcodone/Acetamin 5/325 tab ORAL PRN (11:23)
--- NOTE | 2019-09-28 11:39 | Hematology/Onc Progress Note ---
Assessment/Plan Assessment/Plan Assessment and recs # DVT (deep venous thrombosis) of the left lower ext as well as right lower ext --> confirm with us duplex lower ext --> have dw pulm and renal and has elev cr --> in general best to avoid doac, noac, coumadin, etc --> in this case start eliquis 2.5mg po bid --> partially dialyzable as well if gets hd ever # Anemia of iron deficiency --> Anemia workup has been ordered, rule out gi bleed --> No evidence of hemolysis is noted, peripheral smear has been reviewed. --> Hgb goal >7. Transfuse prn. --> Epogen and iron BOTH started --> Medications have been reviewed --> hgb trend: 9.6 # AILYN on CKD (chronic kidney disease) --> as per renal --> hydraton prn --> renal us: bilat cysts # Dvt ppx eliquis The timing of this note does not necessarily reflect the time of the patient was seen. Greatly appreciate consultation. Subjective Allergies: Coded Allergies: No Known Allergies (Unverified , 06/13/17) Subjective 09/25 labs are noted, no bleeding, meds noted, no hemolysis 09/26 alert, no events, iv iron, eliquis, monitor for bleeding 09/27 no acute events, hep panel pending, refusing hd cath Objective Objective Current Medications Medications (Trade) Dose Ordered Sig/Emilee Route PRN Reason Start Time Stop Time Status Last Admin Dose Admin Acetaminophen (Tylenol) 1,000 mg Q4HR PRN ORAL FOR PAIN 09/25/19 09:00 10/25/19 08:59 09/25/19 18:48 Acetaminophen/ Hydrocodone Bitart ([place] 5/325) 1 tab Q4H PRN ORAL Severe Pain (Pain Scale 7-10) 09/26/19 09:15 10/03/19 09:14 09/28/19 11:23 Amlodipine Besylate (Norvasc) 10 mg DAILY ORAL 09/25/19 09:00 10/25/19 08:59 09/28/19 08:12 Apixaban (Eliquis) 2.5 mg BID ORAL 09/25/19 18:00 12/24/19 17:59 09/28/19 08:11 Calcium Carbonate (Calcium Carbonate) 650 mg THREE TIMES A DAY ORAL 09/25/19 13:00 12/24/19 12:59 09/28/19 08:10 Clonidine HCl (Catapres Tab) 0.1 mg EVERY 8 HOURS ORAL 09/26/19 14:00 12/24/19 06:59 09/28/19 06:43 Diphenhydramine HCl (Benadryl) 25 mg Q4HR PRN ORAL For Itching 09/25/19 09:00 10/25/19 08:59 Divalproex Sodium (Depakote) 500 mg BEDTIME ORAL 09/28/19 21:00 10/28/19 20:59 Docusate Sodium (Colace) 100 mg BID ORAL 09/25/19 18:00 10/25/19 08:59 09/28/19 08:10 Epoetin Hakan (Epoetin Hakan-EPBX(NON ESRD)) 10,000 unit THU-THU-THU SUBQ 09/26/19 21:00 12/25/19 20:59 09/26/19 21:21 Hydralazine HCl (Apresoline) 25 mg Q4HR PRN ORAL BP over 160 systolic 09/25/19 12:15 12/24/19 12:14 Hydralazine HCl (Apresoline) 50 mg Q8H ORAL 09/26/19 16:00 12/24/19 15:59 09/28/19 08:11 Iron Sucrose 100 mg/Sodium Chloride 60 ml @ 240 mls/hr BEDTIME IV 09/25/19 21:00 09/29/19 21:14 09/27/19 21:09 Metoprolol Tartrate (Lopressor) 50 mg EVERY 12 HOURS ORAL 09/25/19 09:00 12/24/19 08:59 09/28/19 08:12 Risperidone (RisperDAL) 2 mg BEDTIME ORAL 09/28/19 21:00 11/12/19 20:59 Tamsulosin HCl (Flomax) 0.4 mg BID ORAL 09/25/19 18:00 10/25/19 17:59 09/28/19 08:11 Last 24 Hour Vital Signs Date Time Temp Pulse Resp B/P (MAP) Pulse Ox O2 Delivery O2 Flow Rate FiO2 09/28/19 09:00 Room Air 09/28/19 08:12 60 145/92 09/28/19 08:12 60 145/92 09/28/19 08:11 145/92 09/28/19 06:43 158/100 09/28/19 04:00 97.2 58 18 158/100 (119) 96 09/28/19 01:01 130/82 09/28/19 00:00 98.0 67 18 130/82 (98) 97 09/27/19 22:28 151/89 09/27/19 21:09 58 145/101 09/27/19 21:00 Room Air 09/27/19 20:00 97.3 60 18 122/81 (95) 97 09/27/19 17:08 137/86 09/27/19 16:00 97.3 55 20 137/86 (103) 96 09/27/19 13:32 142/84 09/27/19 11:40 97.0 62 20 142/84 (103) 94 09/27/19 09:09 97.9 09/27/19 09:00 Room Air 09/27/19 08:35 152/95 09/27/19 08:35 65 152/95 09/27/19 08:34 65 152/95 09/27/19 08:00 97.0 65 20 152/95 (114) 94 09/27/19 07:00 144/99 09/27/19 04:00 97.9 69 18 144/99 (114) 95 09/27/19 01:08 140/79 09/26/19 23:23 97.8 70 18 140/79 (99) 96 09/26/19 22:42 143/89 09/26/19 21:20 69 150/83 09/26/19 21:00 Room Air 09/26/19 20:00 97.7 72 17 150/83 (105) 96 09/26/19 17:02 151/88 09/26/19 13:45 151/88 Intake and Output 09/27/19 09/28/19 19:00 07:00 Intake Total 1060 ml 240 ml Output Total 2700 ml 750 ml Balance -1640 ml -510 ml Intake Oral 1060 ml IV Total 240 ml Output Urine Total 2700 ml 750 ml Labs Test 09/26/19 06:40 09/27/19 08:41 09/28/19 05:46 White Blood Count 6.6 K/UL (4.8-10.8) 9.5 K/UL (4.8-10.8) Red Blood Count 3.10 M/UL (4.70-6.10) 3.32 M/UL (4.70-6.10) Hemoglobin 8.9 G/DL (14.2-18.0) 9.6 G/DL (14.2-18.0) Hematocrit 29.3 % (42.0-52.0) 31.4 % (42.0-52.0) Mean Corpuscular Volume 95 FL (80-99) 94 FL (80-99) Mean Corpuscular Hemoglobin 28.6 PG (27.0-31.0) 29.0 PG (27.0-31.0) Mean Corpuscular Hemoglobin Concent 30.2 G/DL (32.0-36.0) 30.7 G/DL (32.0-36.0) Red Cell Distribution Width 15.6 % (11.6-14.8) 16.0 % (11.6-14.8) Platelet Count 191 K/UL (150-450) 198 K/UL (150-450) Mean Platelet Volume 6.5 FL (6.5-10.1) 6.2 FL (6.5-10.1) Neutrophils (%) (Auto) 54.9 % (45.0-75.0) 67.1 % (45.0-75.0) Lymphocytes (%) (Auto) 26.7 % (20.0-45.0) 17.3 % (20.0-45.0) Monocytes (%) (Auto) 15.2 % (1.0-10.0) 12.3 % (1.0-10.0) Eosinophils (%) (Auto) 2.3 % (0.0-3.0) 1.9 % (0.0-3.0) Basophils (%) (Auto) 1.0 % (0.0-2.0) 1.4 % (0.0-2.0) Sodium Level 140 MMOL/L (136-145) 140 MMOL/L (136-145) 141 MMOL/L (136-145) Potassium Level 5.4 MMOL/L (3.5-5.1) 4.5 MMOL/L (3.5-5.1) 4.6 MMOL/L (3.5-5.1) Chloride Level 107 MMOL/L (98-107) 106 MMOL/L (98-107) 106 MMOL/L (98-107) Carbon Dioxide Level 22 MMOL/L (21-32) 22 MMOL/L (21-32) 23 MMOL/L (21-32) Anion Gap 11 mmol/L (5-15) 12 mmol/L (5-15) 13 mmol/L (5-15) Blood Urea Nitrogen 70 mg/dL (7-18) 77 mg/dL (7-18) 79 mg/dL (7-18) Creatinine 4.4 MG/DL (0.55-1.30) 4.4 MG/DL (0.55-1.30) 4.2 MG/DL (0.55-1.30) Estimat Glomerular Filtration Rate 17.0 mL/min (>60) 17.0 mL/min (>60) 17.9 mL/min (>60) Glucose Level 85 MG/DL (74-106) 106 MG/DL (74-106) 81 MG/DL (74-106) Hemoglobin A1c 6.9 % (4.3-6.0) Calcium Level 7.8 MG/DL (8.5-10.1) 7.6 MG/DL (8.5-10.1) 8.0 MG/DL (8.5-10.1) Phosphorus Level 5.3 MG/DL (2.5-4.9) 5.6 MG/DL (2.5-4.9) 5.4 MG/DL (2.5-4.9) Total Bilirubin 0.1 MG/DL (0.2-1.0) < 0.1 MG/DL (0.2-1.0) 0.2 MG/DL (0.2-1.0) Aspartate Amino Transf (AST/SGOT) 16 U/L (15-37) 15 U/L (15-37) 19 U/L (15-37) Alanine Aminotransferase (ALT/SGPT) 14 U/L (12-78) 14 U/L (12-78) 11 U/L (12-78) Alkaline Phosphatase 85 U/L (46-116) 90 U/L (46-116) 93 U/L (46-116) Total Protein 6.2 G/DL (6.4-8.2) 6.4 G/DL (6.4-8.2) 6.8 G/DL (6.4-8.2) Albumin 2.7 G/DL (3.4-5.0) 2.8 G/DL (3.4-5.0) 3.0 G/DL (3.4-5.0) Globulin 3.5 g/dL 3.6 g/dL 3.8 g/dL Albumin/Globulin Ratio 0.8 (1.0-2.7) 0.8 (1.0-2.7) 0.8 (1.0-2.7) Triglycerides Level 25 MG/DL (30-150) Cholesterol Level 140 MG/DL (< 200) LDL Cholesterol 51 mg/dL (<100) HDL Cholesterol 78 MG/DL (40-60) Cholesterol/HDL Ratio 1.8 (3.3-4.4) Uric Acid 8.2 MG/DL (2.6-7.2) C-Reactive Protein, Quantitative < 0.4 mg/dL (0.00-0.90) Pro-B-Type Natriuretic Peptide 1246 pg/mL (0-125) Height (Feet): 6 Height (Inches): 2.00 Weight (Pounds): 200 Objective Vitals: reviewed General: NAD HEENT: nc, at Neck: supple Chest: clear breath sounds bilaterally Cardiovascular: RRR, no s3, s4 Abdomen: soft, nontender, nd Extremities: no cce, normal range of motion left ?right swelling lower leg Neuro: alert and oriented Matt Pantoja MD Sep 28, 2019 11:39
[2019-09-28 11:56] VITALS: BP 128/84
[2019-09-28 13:34] VITALS: BP 128/84
--- NOTE | 2019-09-28 23:04 | Psych Consult Progress Note ---
Psychiatry Progress Note Psychiatry Progress Note Neurological/Psychiatric: Reports: anxiety, depressed, emotional problems Allergies: Coded Allergies: No Known Allergies (Unverified , 06/13/17) Objective Data Height (Feet): 6 Height (Inches): 2.00 Weight (Pounds): 200 Additional Comments: Alert, oriented times self, place, situation, and date. Mood is irritable. Affect is constricted, congruent with mood. Thought process is concrete. Thought content, no suicidal or homicidal ideation. Cognition is impaired. Insight and judgment impaired. Assessment/Plan Assessment/Plan: ASSESSMENT: [place] I Schizoaffective disorder [place] II Deferred. [place] III As above. [place] IV Low. [place] V 20. PLAN: 1. Start the patient on risperidone 2 mg at bedtime. 2. Depakote 500 mg at bedtime. 3. Provide the patient with reality orientation and supportive therapy. Carole Chacon MD Sep 28, 2019 23:04
--- NOTE | 2019-09-29 15:02 | Discharge Summary ---
Discharge Summary Discharge Summary _ DATE OF ADMISSION: 09/25/2019 DATE OF DISCHARGE: 09/28/2019 DISCHARGED BY: Dr. Duval REASON FOR ADMISSION: 58 years old male with past medical history of hypertension, diabetes mellitus, colostomy, mostly bedbound, presented with chronic lower extremity edema worse in the last couple of months , left more than the right . Ultrasound revealed extensive DVT in the lower extremity. Patient denied shortness of breath. No chest pain. No fever or chills. No nausea or vomiting. Patient reported chronic pain in bilateral lower extremity, 8 out of 10. Laboratory work-up revealed no leukocytosis, hemoglobin 9.6, hematocrit 30.2, platelet count 205. Stable electrolytes. BUN 77, creatinine 4.6. Urinalysis revealed no evidence of urinary tract infection , +3 protein. COVID screen in the facility was negative a month ago. In emergency department patient received Lovenox and admitted for further management. CONSULTANTS: pulmonary Dr. Boyd cad designer Dr. Nuñez vacuum system tester/oncologist Dr. Pantoja pain specialist Dr. Serrato psychiatrist Dr. ann HOSPITAL COURSE: Patient admitted and started on hydration. Renal parameters and electrolytes were closely monitored. Renal ultrasound revealed echogenic kidneys , reflecting medical renal disease, bilateral renal cysts. No obstructive uropathy. With IV hydration creatinine from 4.6 only down to 4.2 and BUN remained about the same . Nephrology discussed with the patient regarding initiation of hemodialysis. Patient at this time decided to wait and talk to his sister prior to accepting dialysis. Patient started on anticoagulation with Eliquis 2.5 mg twice daily. Anemia work-up showed anemia of chronic disease and iron deficiency anemia. Patient started on Epogen and IV iron., Hemoglobin and hematocrit were closely monitored with goal to keep hemoglobin above 7. Prior to discharge hemoglobin 9.6 , hematocrit 31.4. Pain management was addressed as per pain specialist recommendation. SNF medication continued. Blood pressure was managed with multiply antihypertensive regimen. Psychiatric medication regimen was optimized as per psychiatrist . Patient clinically stabilized and was ready for transfer back to [facility] facility for continuation of care FINAL DIAGNOSES: DVT left lower extremity Acute on chronic kidney disease Anemia of chronic kidney disease Anemia of iron deficiency Hypertension Diabetes mellitus History of CVA Colostomy Lumbar DDD Lumbar spondylosis Bilateral lower extremity pain due to DVT Schizoaffective disorder DISCHARGE MEDICATIONS: See Medication Reconciliation list. DISCHARGE INSTRUCTIONS: Patient was discharged to the retirement facility. Follow up with medical doctor at the facility. I have been assigned to dictate discharge summary for this account. I was not involved in the patient's management. Bridget Miner NP Sep 29, 2019 15:02
== END 2019-09-28 14:20 | DRG 300 ==
LOC: EDUNIT# 23:58 → EDBD 23:58 → EMR 23:59 → 4E 09-25 00:31 → EDBEDREQ 09-25 01:02
DX: I82.402 Acute embolism and thrombosis of unspecified deep veins of left lower extremity (principal); N18.4 Chronic kidney disease, stage 4 (severe); N17.9 Acute kidney failure, unspecified; M51.06 Intervertebral disc disorders with myelopathy, lumbar region; I12.9 Hypertensive chronic kidney disease with stage 1 through stage 4 chronic kidney disease, or unspecified chronic kidney disease; M51.36 Other intervertebral disc degeneration, lumbar region; D63.1 Anemia in chronic kidney disease; M51.16 Intervertebral disc disorders with radiculopathy, lumbar region; M47.26 Other spondylosis with radiculopathy, lumbar region; D50.9 Iron deficiency anemia, unspecified; F25.9 Schizoaffective disorder, unspecified; Z93.3 Colostomy status; Z66 Do not resuscitate
CPT/HCPCS: 36415; 76770; 80048; 80053; 80061; 81001; 82550; 82607; 82728; 82746; 83036; 83540; 83550; 83735; 83880; 84100; 84300; 84550; 85025; 85610; 85730; 86140; 86706; 86707; 86803; 87081; 93306; 96374; 99285